=== PATIENT | female | born 1960 | race Caucasian/White ===

== ENCOUNTER → 2016-12-06 | Outpatient (CLI) | payer BC | LOC: MW.NM 06:10 | PROVIDERS: ATTEND Family Medicine | DX: R07.9 Chest pain, unspecified (principal); Z53.9 Procedure and treatment not carried out, unspecified reason ==

== ENCOUNTER 2017-02-03 20:18 | Emergency (ER) | payer BC ==
--- NOTE | 2017-02-03 20:49 | EDM.PDOC ---
ED HPI GENERAL MEDICAL PROBLEM - General Chief Complaint: General Stated Complaint: PT HAS HEADACHE Time Seen by Provider: 02/03/17 20:40 Source of Information: Reports: Patient History Limitations: Reports: No Limitations - History of Present Illness INITIAL COMMENTS - FREE TEXT/NARRATIVE: History of present illness: [56-year-old female presenting with complaints of dizziness, intermittent nausea , left-sided chest pain, as well as pain behind her eyes. ] Review of systems: As per history of present illness and below otherwise all systems reviewed and negative. Past medical history: As per history of present illness and as reviewed below otherwise noncontributory. Surgical history: As per history of present illness and as reviewed below otherwise noncontributory. Social history: No reported history of drug or alcohol abuse. Family history: As per history of present illness and as reviewed below otherwise noncontributory. Physical exam: HEENT: Atraumatic, normocephalic, pupils reactive, negative for conjunctival pallor or scleral icterus, mucous membranes moist, throat clear, neck supple, nontender, trachea midline. Lungs: Clear to auscultation, breath sounds equal bilaterally, chest nontender. Heart: S1S2, regular, negative for clicks, rubs, or JVD. Abdomen: Soft, nondistended, nontender. Negative for masses or hepatosplenomegaly. Negative for costovertebral tenderness. Pelvis: Stable nontender. Genitourinary: Deferred. Rectal: Deferred. Extremities: Atraumatic, negative for cords or calf pain. Neurovascular unremarkable. Neuro: Awake, alert, oriented. Cranial nerves II through XII unremarkable. Cerebellum unremarkable. Motor and sensory unremarkable throughout. Exam nonfocal. Global assessment was benign save that subjective complaint as listed in the history of present illness Diagnostics: [Cardiac workup] Therapeutics: [] Impression: [Atypical chest pain] Plan: [Followup with PCP] Definitive disposition and diagnosis as appropriate pending reevaluation and review of above. - Related Data Allergies Allergy/AdvReac Type Severity Reaction Status Date / Time aloe vera Allergy Blisters Verified 02/03/17 20:23 witch araceli Allergy Hives Verified 02/03/17 20:23 dust Allergy Cough Uncoded 02/03/17 20:23 Home Meds: Home Meds Venlafaxine [Effexor XR 24 Hr] 75 mg PO DAILY 01/24/16 [History] sitaGLIPtin Phos/Metformin HCl [Janumet 50-500 MG] 1,000 mg PO DAILY 02/03/17 [ History] Past Medical History HEENT History: Reports: Hard of Hearing Psychiatric History: Reports: Anxiety, Depression - Infectious Disease History Infectious Disease History: Reports: Chicken Pox - Past Surgical History HEENT Surgical History: Reports: Tonsillectomy GI Surgical History: Reports: Cholecystectomy, Hernia Repair/Other Other Female Surgeries/Procedures: Breat biopsy, left 1994 Oncologic Surgical History: Reports: Biopsy of Breast Social & Family History - Family History Family Medical History: Noncontributory Cardiac: Reports: Afib, Bypass, Heart Failure, Hypertension, [place], Stent, Other ( See Below) Other Cardiac Family History: weak heart valve Neurological: Reports: CVA, Other (See Below) Other Neurological Family History: hemorragic stroke Endocrine/Metabolic: Reports: Diabetes, Type I, Diabetes, type II - Tobacco Use Smoking Status *Q: Never Smoker Second Hand Smoke Exposure: No - Caffeine Use Caffeine Use: Reports: Coffee Caffeine Use Comment: 1 cup/day - Recreational Drug Use Recreational Drug Use: No ED ROS GENERAL - Review of Systems Review Of Systems: See Below (The history of present illness) ED EXAM, GENERAL - Physical Exam Exam: See Below (History of present illness) Course - Vital Signs Last Recorded V/S: Last Vital Signs Temp 36.2 C 02/03/17 20:20 Pulse 92 02/03/17 21:00 Resp 19 02/03/17 21:00 BP 166/101 H 02/03/17 21:00 Pulse Ox 96 02/03/17 21:00 - Orders/Labs/Meds Orders: Active Orders 24 hr Category Date Time Status EKG Documentation Completion [RC] STAT Care 02/03/17 21:05 Active Chest 2V [CR] Stat Exams 02/03/17 21:05 Taken Sodium Chloride 0.9% [Saline Flush] Med 02/03/17 21:05 Active 10 ml FLUSH ASDIRECTED PRN Sodium Chloride 0.9% [Saline Flush] Med 02/03/17 21:05 Active 2.5 ml FLUSH ASDIRECTED PRN Saline Lock Insert [OM.PC] Stat Oth 02/03/17 21:05 Ordered Medication Orders Sodium Chloride (Saline Flush) 10 ml FLUSH ASDIRECTED PRN PRN Reason: Keep Vein Open Sodium Chloride (Saline Flush) 2.5 ml FLUSH ASDIRECTED PRN PRN Reason: Keep Vein Open Labs: Laboratory Tests 02/03/17 02/03/17 02/03/17 Range/Units 21:15 21:15 21:15 WBC 13.99 H (4.0-11.0) K/uL RBC 4.58 (4.30-5.90) M/uL Hgb 13.6 (12.0-16.0) g/dL Hct 40.8 (36.0-46.0) % MCV 89.1 (80.0-98.0) fL MCH 29.7 (27.0-32.0) pg MCHC 33.3 (31.0-37.0) g/dL RDW Std Deviation 42.7 (28.0-62.0) fl RDW Coeff of Michelle 13 (11.0-15.0) % Plt Count 301 (150-400) K/uL MPV 10.90 (7.40-12.00) fL Neut % (Auto) 54.8 (48.0-80.0) % Lymph % (Auto) 32.4 (16.0-40.0) % Lake % (Auto) 9.0 (0.0-15.0) % Eos % (Auto) 3.4 (0.0-7.0) % Baso % (Auto) 0.4 (0.0-1.5) % Neut # (Auto) 7.7 H (1.4-5.7) K/uL Lymph # (Auto) 4.5 H (0.6-2.4) K/uL Lake # (Auto) 1.3 H (0.0-0.8) K/uL Eos # (Auto) 0.5 (0.0-0.7) K/uL Baso # (Auto) 0.1 (0.0-0.1) K/uL Nucleated RBC % 0.0 /100WBC Nucleated RBCs # 0 K/uL INR 1.00 (0.86-1.11) D-Dimer, Quantitative 0.21 (0.0-0.52) mg/LFEU Sodium 139 (136-146) mmol/L Potassium 3.7 (3.5-5.1) mmol/L Chloride 104 (98-110) mmol/L Carbon Dioxide 25 (21-31) mmol/L BUN 13 (6.0-23.0) mg/dL Creatinine 0.7 (0.6-1.5) mg/dL Est Cr Clr Drug Dosing 76.00 mL/min Estimated GFR (MDRD) > 60.0 ml/min Glucose 131 H (60-110) mg/dL Calcium 9.4 (8.8-10.8) mg/dL Total Bilirubin 0.6 (0.1-1.5) mg/dL AST 19 (5-40) IU/L ALT 24 (8-54) IU/L Alkaline Phosphatase 88 (40-150) Troponin I (0.0-0.29) NG/ML Total Protein 7.2 (6.0-8.0) g/dL Albumin 3.9 (3.5-5.0) g/dL Globulin 3.3 (2.0-3.5) g/dL Albumin/Globulin Ratio 1.2 L (1.3-2.8) Amylase 37 (10-90) U/L Lipase 17 (7-80) U/L 02/03/17 Range/Units 21:15 WBC (4.0-11.0) K/uL RBC (4.30-5.90) M/uL Hgb (12.0-16.0) g/dL Hct (36.0-46.0) % MCV (80.0-98.0) fL MCH (27.0-32.0) pg MCHC (31.0-37.0) g/dL RDW Std Deviation (28.0-62.0) fl RDW Coeff of Michelle (11.0-15.0) % Plt Count (150-400) K/uL MPV (7.40-12.00) fL Neut % (Auto) (48.0-80.0) % Lymph % (Auto) (16.0-40.0) % Lake % (Auto) (0.0-15.0) % Eos % (Auto) (0.0-7.0) % Baso % (Auto) (0.0-1.5) % Neut # (Auto) (1.4-5.7) K/uL Lymph # (Auto) (0.6-2.4) K/uL Lake # (Auto) (0.0-0.8) K/uL Eos # (Auto) (0.0-0.7) K/uL Baso # (Auto) (0.0-0.1) K/uL Nucleated RBC % /100WBC Nucleated RBCs # K/uL INR (0.86-1.11) D-Dimer, Quantitative (0.0-0.52) mg/LFEU Sodium (136-146) mmol/L Potassium (3.5-5.1) mmol/L Chloride (98-110) mmol/L Carbon Dioxide (21-31) mmol/L BUN (6.0-23.0) mg/dL Creatinine (0.6-1.5) mg/dL Est Cr Clr Drug Dosing mL/min Estimated GFR (MDRD) ml/min Glucose (60-110) mg/dL Calcium (8.8-10.8) mg/dL Total Bilirubin (0.1-1.5) mg/dL AST (5-40) IU/L ALT (8-54) IU/L Alkaline Phosphatase (40-150) Troponin I < 0.10 (0.0-0.29) NG/ML Total Protein (6.0-8.0) g/dL Albumin (3.5-5.0) g/dL Globulin (2.0-3.5) g/dL Albumin/Globulin Ratio (1.3-2.8) Amylase (10-90) U/L Lipase (7-80) U/L Meds: Medications Generic Name Dose Route Start Last Admin Trade Name Yinka PRN Reason Stop Dose Admin Sodium Chloride 10 ml 02/03/17 21:05 Saline Flush FLUSH ASDIRECTED PRN Keep Vein Open Sodium Chloride 2.5 ml 02/03/17 21:05 Saline Flush FLUSH ASDIRECTED PRN Keep Vein Open Discontinued Medications Generic Name Dose Route Start Last Admin Trade Name Chrisq PRN Reason Stop Dose Admin Aspirin 324 mg 02/03/17 21:05 02/03/17 21:27 Aspirin PO 02/03/17 21:06 324 mg ONETIME ONE Administration Al Hydroxide/Mg Hydroxide 15 0 ml 02/03/17 21:05 02/03/17 21:31 ml/ Metoclopramide HCl 5 mg/ PO 02/03/17 21:06 25 each Lidocaine HCl 5 ml ONETIME ONE Administration Famotidine 20 mg 02/03/17 21:05 02/03/17 21:28 Pepcid IVPUSH 02/03/17 21:06 20 mg ONETIME ONE Administration Ketorolac Tromethamine 30 mg 02/03/17 21:05 02/03/17 21:31 Toradol IVPUSH 02/03/17 21:06 30 mg ONETIME ONE Administration Nitroglycerin 1 gm 02/03/17 21:05 02/03/17 21:26 Nitro-Bid 2% TOP 02/03/17 21:06 1 gm ONETIME ONE Administration Departure - Departure Time of Disposition: 22:05 Disposition: Home, Self-Care 01 Condition: good Clinical Impression: Atypical chest pain - Discharge Information Forms: ED Department Discharge Additional Instructions: The following information is given to patients seen in the emergency department who are being discharged to home. This information is to outline your options for follow-up care. We provide all patients seen in our emergency department with a follow-up referral. The need for follow-up, as well as the timing and circumstances, are variable depending upon the specifics of your emergency department visit. If you don't have a primary care physician on staff, we will provide you with a referral. We always advise you to contact your personal physician following an emergency department visit to inform them of the circumstance of the visit and for follow-up with them and/or the need for any referrals to a consulting specialist. The emergency department will also refer you to a specialist when appropriate. This referral assures that you have the opportunity for follow-up care with a specialist. All of these measure are taken in an effort to provide you with optimal care, which includes your follow-up. Under all circumstances we always encourage you to contact your private physician who remains a resource for coordinating your care. When calling for follow-up care, please make the office aware that this follow-up is from your recent emergency room visit. If for any reason you are refused follow-up, please contact the [facility] Emergency Department at and asked to speak to the emergency department charge nurse. Followup with primary care provider one to 2 days Return to ED as needed as discussed - My Orders Last 24 Hours: My Active Orders 02/03/17 21:05 EKG Documentation Completion [RC] STAT Chest 2V [CR] Stat Sodium Chloride 0.9% [Saline Flush] 10 ml FLUSH ASDIRECTED PRN Sodium Chloride 0.9% [Saline Flush] 2.5 ml FLUSH ASDIRECTED PRN Saline Lock Insert [OM.PC] Stat - Assessment/Plan Last 24 Hours: My Active Orders 02/03/17 21:05 EKG Documentation Completion [RC] STAT Chest 2V [CR] Stat Sodium Chloride 0.9% [Saline Flush] 10 ml FLUSH ASDIRECTED PRN Sodium Chloride 0.9% [Saline Flush] 2.5 ml FLUSH ASDIRECTED PRN Saline Lock Insert [OM.PC] Stat
[2017-02-03] MEDS ORDERED: Aspirin 81 MG Tab.Chew PO ONE (21:05)
[2017-02-03] MEDS ORDERED: Sodium Chloride 0.9% 10 ML Syringe FLUSH PRN (21:05)
[2017-02-03] MEDS ORDERED: Alum Hydrox/Mag Hydrox/Simeth 15 ML, Metoclopramide 5 MG, Lidocaine 2% 5 ML PO ONE ×3 (21:05)
[2017-02-03] MEDS ORDERED: Ketorolac 30 MG/ML SDV IVPUSH ONE (21:05)
[2017-02-03] MEDS ORDERED: Sodium Chloride 0.9% 2.5 ML Syringe FLUSH PRN (21:05)
[2017-02-03] MEDS ORDERED: Nitroglycerin 2% Oint 1 GM UD Packet TOP ONE (21:05)
[2017-02-03] MEDS ORDERED: Famotidine 20 MG/2 ML SDV IVPUSH ONE (21:05)
[2017-02-03 21:44] LABS: CHLORIDE,CL 104 mmol/L (98-110); SODIUM,NA 139 mmol/L (136-146)
[2017-02-03 22:22] VITALS: BP 172/94
--- NOTE | 2017-02-05 15:04 | CR ---
EXAM DATE: 02/03/17 PATIENT'S AGE: 56 Patient: GUILLERMO LUIS Facility: [place], [place] Site . Site : 1960 Study: XRay Chest [id number]/20/2017 9:28:06 PM Ordering Physician: Doctor Baca Final Report: HISTORY: Pain between the clavicles. Comparison: 11/15/2011. Findings: The lungs are clear. Costophrenic angles sharp. Heart size and pulmonary vascularity within normal limits. Mild degenerative changes in the spine. Impression: No acute pulmonary process. Dictated by Oly Wen MD @ Feb 03 2017 9:29PM (Electronic Signature) Report Signed by Proxy. SANTIAGO
== END 2017-02-03 22:13 | disposition home or self-care (01) ==
LOC: MW.ED 20:18
DX: R07.89 Other chest pain (principal); F41.9 Anxiety disorder, unspecified; F32.9 Major depressive disorder, single episode, unspecified; Z98.890 Other specified postprocedural states; Z90.49 Acquired absence of other specified parts of digestive tract; Z79.899 Other long term (current) drug therapy; Z79.84 Long term (current) use of oral hypoglycemic drugs; Z88.8 Allergy status to other drugs, medicaments and biological substances; Z91.048 Other nonmedicinal substance allergy status
CPT/HCPCS: 36415; 71020; 80053; 82150; 83690; 84484; 85025; 85379; 85610; 93005; 96374; 96375; 99285; A9270; J1885; 99283

== ENCOUNTER 2017-02-22 00:55 | Emergency (ER) | payer BC ==
[2017-02-22] MEDS ORDERED: Ketorolac 30 MG/ML SDV IM ONE (01:08)
--- NOTE | 2017-02-22 01:24 | EDM.PDOC ---
ED HPI GENERAL MEDICAL PROBLEM - General Chief Complaint: Back Pain or Injury Stated Complaint: BACK PAIN Time Seen by Provider: 02/22/17 01:23 - History of Present Illness INITIAL COMMENTS - FREE TEXT/NARRATIVE: HISTORY AND PHYSICAL: History of present illness: Patient 56-year-old female with history chronic back pain presents with a concern of low back pain she states this is been over last several weeks she did see her chiropractor who wanted x-rays she is here tonight for x-rays that she was unable to secure due to her personal responsibilities. She's had no numbness no weakness no incontinence or retention of bowel or bladder she denies any trauma Review of systems: As per history of present illness and below otherwise all systems reviewed and negative. Past medical history: As per history of present illness and as reviewed below otherwise noncontributory. Surgical history: As per history of present illness and as reviewed below otherwise noncontributory. Social history: No reported history of drug or alcohol abuse. Family history: As per history of present illness and as reviewed below otherwise noncontributory. Physical exam: HEENT: Atraumatic, normocephalic, pupils reactive, negative for conjunctival pallor or scleral icterus, mucous membranes moist, throat clear, neck supple, nontender, trachea midline. Lungs: Clear to auscultation, breath sounds equal bilaterally, chest nontender. Heart: S1S2, regular, negative for clicks, rubs, or JVD. Abdomen: Soft, nondistended, nontender. Negative for masses or hepatosplenomegaly. Negative for costovertebral tenderness. Pelvis: Stable nontender. Genitourinary: Deferred. Rectal: Deferred. Extremities: Atraumatic, negative for cords or calf pain. Neurovascular unremarkable. Neuro: Awake, alert, oriented. Cranial nerves II through XII unremarkable. Cerebellum unremarkable. Motor and sensory unremarkable throughout. Exam nonfocal. Back: Patient is some mild tenderness in the paravertebral region of the lower thoracic and lumbar spine no vertebral body or point tenderness patient able stand on her toes back on her heels and deep tendon reflexes are normal Diagnostics: X-ray thoracic spine x-ray lumbosacral spine Therapeutics: Toradol 30 mg IM Impression: #1 chronic intermittent thoracolumbar back pain Definitive disposition and diagnosis as appropriate pending reevaluation and review of above. back Pain Score (Numeric/FACES): 10 - Related Data Allergies Allergy/AdvReac Type Severity Reaction Status Date / Time aloe vera Allergy Blisters Verified 02/22/17 01:00 witch araceli Allergy Hives Verified 02/22/17 01:00 dust Allergy Cough Uncoded 02/22/17 01:00 Home Meds: Home Meds Venlafaxine [Effexor XR 24 Hr] 75 mg PO DAILY 01/24/16 [History] sitaGLIPtin Phos/Metformin HCl [Janumet 50-500 MG] 1,000 mg PO DAILY 02/03/17 [ History] Aspirin 81 mg PO BRK 02/22/17 [History] Past Medical History HEENT History: Reports: Hard of Hearing Psychiatric History: Reports: Anxiety, Depression - Infectious Disease History Infectious Disease History: Reports: Chicken Pox - Past Surgical History HEENT Surgical History: Reports: Tonsillectomy GI Surgical History: Reports: Cholecystectomy, Hernia Repair/Other Other Female Surgeries/Procedures: Breat biopsy, left 1994 Oncologic Surgical History: Reports: Biopsy of Breast Social & Family History - Family History Family Medical History: Noncontributory Cardiac: Reports: Afib, Bypass, Heart Failure, Hypertension, [place], Stent, Other ( See Below) Other Cardiac Family History: weak heart valve Neurological: Reports: CVA, Other (See Below) Other Neurological Family History: hemorragic stroke Endocrine/Metabolic: Reports: Diabetes, Type I, Diabetes, type II - Tobacco Use Smoking Status *Q: Never Smoker Second Hand Smoke Exposure: No - Caffeine Use Caffeine Use: Reports: Coffee Caffeine Use Comment: 1 cup/day - Recreational Drug Use Recreational Drug Use: No ED ROS GENERAL - Review of Systems Review Of Systems: ROS reveals no pertinent complaints other than HPI. ED EXAM, GENERAL - Physical Exam Exam: See Below (See dictation) Course - Vital Signs Last Recorded V/S: Last Vital Signs Temp 36.1 C 02/22/17 01:02 Pulse 90 02/22/17 01:02 Resp 20 02/22/17 01:02 BP 188/107 H 02/22/17 01:02 Pulse Ox 96 02/22/17 01:02 - Orders/Labs/Meds Orders: Active Orders 24 hr Category Date Time Status Lumbar Spine 2 or 3V [CR] Stat Exams 02/22/17 01:08 Ordered Thoracic Spine 2V [CR] Stat Exams 02/22/17 01:08 Ordered Meds: Medications Discontinued Medications Generic Name Dose Route Start Last Admin Trade Name Yinka PRN Reason Stop Dose Admin Ketorolac Tromethamine 30 mg 02/22/17 01:08 02/22/17 01:17 Toradol IM 02/22/17 01:09 30 mg ONETIME ONE Administration Departure - Departure Time of Disposition: 01:22 Disposition: Home, Self-Care 01 Condition: good Clinical Impression: Chronic back pain - Discharge Information Forms: ED Department Discharge Additional Instructions: The following information is given to patients seen in the emergency department who are being discharged to home. This information is to outline your options for follow-up care. We provide all patients seen in our emergency department with a follow-up referral. The need for follow-up, as well as the timing and circumstances, are variable depending upon the specifics of your emergency department visit. If you don't have a primary care physician on staff, we will provide you with a referral. We always advise you to contact your personal physician following an emergency department visit to inform them of the circumstance of the visit and for follow-up with them and/or the need for any referrals to a consulting specialist. The emergency department will also refer you to a specialist when appropriate. This referral assures that you have the opportunity for followup care with a specialist. All of these measure are taken in an effort to provide you with optimal care, which includes your followup. Under all circumstances we always encourage you to contact your private physician who remains a resource for coordinating your care. When calling for followup care, please make the office aware that this follow-up is from your recent emergency room visit. If for any reason you are refused follow-up, please contact the [facility] emergency department at and asked to speak to the emergency department charge nurse. Follow-up primary medical doctor 1-2 days continue current medications return as needed as discussed - My Orders Last 24 Hours: My Active Orders 02/22/17 01:08 Lumbar Spine 2 or 3V [CR] Stat Thoracic Spine 2V [CR] Stat - Assessment/Plan Last 24 Hours: My Active Orders 02/22/17 01:08 Lumbar Spine 2 or 3V [CR] Stat Thoracic Spine 2V [CR] Stat
[2017-02-22 02:25] VITALS: BP 140/79
--- NOTE | 2017-02-22 10:54 | CR ---
EXAM DATE: 02/22/17 PATIENT'S AGE: 56 Patient: GUILLERMO LUIS Facility: [place], [place] Site . Site : 1960 Study: XRay Spine Lumbar [id number]/8/[id number] 1:40:42 AM Ordering Physician: Doctor Baca Final Report: INDICATION : Chronic back pain, worsened tonight. History of fall 1 year ago. TECHNIQUE : Three views of lumbar spine. FINDINGS : There are 5 lumbar vertebral bodies. Multilevel disk space narrowing in the lumbar spine and visualized lower thoracic spine with marginal osteophytes. Moderate lower lumbar spine facet degenerative changes, which likely contributes to foraminal narrowing at the L4-L5 and L5-S1 levels. No pars defect. No suspicious osseous lesion. Sacroiliac joints unremarkable. Cholecystectomy surgical clips in the right upper abdomen. IMPRESSION : Multilevel degenerative disc disease in the lower thoracic spine and throughout the lumbar spine. No compression fracture. Lower lumbar spine facet degenerative changes likely contributes to foraminal narrowing at the L4-L5 and L5-S1 levels. Dictated by Pineda Young MD @ 02/22/2017 2:02:09 AM Dictated by: Pineda Young MD @ 02/22/2017 02:02:19 (Electronic Signature) Report Signed by Proxy. SANTIAGO
--- NOTE | 2017-02-22 10:55 | CR ---
EXAM DATE: 02/22/17 PATIENT'S AGE: 56 Patient: GUILLERMO LUIS Facility: [place], [place] Site . Site : 1960 Study: XRay Spine Thoracic [id number]/8/[id number] 1:41:21 AM Ordering Physician: Doctor Baca Final Report: INDICATION : Chronic back pain. History of fall 1 year ago. Worsening symptoms earlier tonight. TECHNIQUE : Two views of thoracic spine. FINDINGS : Multilevel disc space narrowing throughout the thoracic spine with marginal osteophytes. Alignment normal. No compression fracture or suspicious osseous lesion. Paraspinal soft tissues within normal limits. Posterior ribs intact. IMPRESSION : Moderate degree of multilevel thoracic spine degenerative disk disease. No acute abnormality. Dictated by Pineda Young MD @ 02/22/2017 2:03:51 AM Dictated by: Pineda Young MD @ 02/22/2017 02:03:56 (Electronic Signature) Report Signed by Proxy. SANTIAGO
== END 2017-02-22 02:23 | disposition home or self-care (01) ==
LOC: MW.ED 00:55
DX: G89.29 Other chronic pain (principal); M54.5 Low back pain; F41.9 Anxiety disorder, unspecified; F32.9 Major depressive disorder, single episode, unspecified; Z79.899 Other long term (current) drug therapy; Z91.048 Other nonmedicinal substance allergy status
CPT/HCPCS: 72070; 72100; 96372; 99283; J1885

== ENCOUNTER 2018-04-29 22:01 | Emergency (ER) | payer BC ==
[2018-04-29 22:26] VITALS: BP 153/71
--- NOTE | 2018-04-29 22:29 | EDM.PDOC ---
ED HPI GENERAL MEDICAL PROBLEM - General Chief Complaint: Lower Extremity Injury/Pain Stated Complaint: LOG FELL ON RIGHT FOOT Time Seen by Provider: 04/29/18 22:15 Source of Information: Reports: Patient History Limitations: Reports: No Limitations - History of Present Illness INITIAL COMMENTS - FREE TEXT/NARRATIVE: HISTORY AND PHYSICAL: History of present illness: 57-year-old female presenting to emergency department with right foot pain after trauma. Patient states that at work today she dropped an approximately 30 pound log onto her right foot she was wearing a maccosin at the time noon. States that she was able to walk afterwards but noted some pain and swelling to the top of her foot. As the night went on pain increased as well as swelling. She denies any loss of sensation, strength, or range of motion. On exam there is swelling to the top of the foot and patient is tender to palpation. Neurovascular intact. Review of systems: As per history of present illness and below otherwise all systems reviewed and negative. Past medical history: As per history of present illness and as reviewed below otherwise noncontributory. Surgical history: As per history of present illness and as reviewed below otherwise noncontributory. Social history: No reported history of drug or alcohol abuse. Family history: As per history of present illness and as reviewed below otherwise noncontributory. Physical exam: HEENT: Atraumatic, normocephalic, pupils reactive, negative for conjunctival pallor or scleral icterus, mucous membranes moist, throat clear, neck supple, nontender, trachea midline. Lungs: Clear to auscultation, breath sounds equal bilaterally, chest nontender. Heart: S1S2, regular, negative for clicks, rubs, or JVD. Abdomen: Soft, nondistended, nontender. Negative for masses or hepatosplenomegaly. Negative for costovertebral tenderness. Pelvis: Stable nontender. Genitourinary: Deferred. Rectal: Deferred. Extremities: Swelling to top of foot and tender to palp, negative for cords or calf pain. Neurovascular unremarkable. Neuro: Awake, alert, oriented. Cranial nerves II through XII unremarkable. Cerebellum unremarkable. Motor and sensory unremarkable throughout. Exam nonfocal. Diagnostics: right foot x-ray Therapeutics: toradol 60 Impression: contusion right foot Plan: Right foot x-ray was negative for acute osseous abnormalities. This was communicated to the patient. She was told to use rice, rest, ice, compression, elevation, and ibuprofen. She should follow with primary care provider and return the emergency department if she has any new or worsening symptoms. Definitive disposition and diagnosis as appropriate pending reevaluation and review of above. Treatments [employer] G[employer]: Reports: Cold Therapy right foot Pain Score (Numeric/FACES): 6 - Related Data Allergies Allergy/AdvReac Type Severity Reaction Status Date / Time aloe vera Allergy Blisters Verified 02/22/17 01:00 witch araceli Allergy Hives Verified 02/22/17 01:00 dust Allergy Cough Uncoded 02/22/17 01:00 Home Meds: Home Meds Venlafaxine [Effexor XR 24 Hr] 75 mg PO DAILY 01/24/16 [History] sitaGLIPtin Phos/Metformin HCl [Janumet 50-500 MG] 2 tab PO BEDTIME 02/03/17 [ History] Aspirin 81 mg PO BRK 02/22/17 [History] Cetirizine HCl [Zyrtec] 10 mg PO ASDIRECTED 12/18/17 [History] Latanoprost [Xalatan 0.005% Ophth Soln] 1 drop EYEBOTH BEDTIME 12/18/17 [History ] Amoxicillin/Clavulanate K [Augmentin 875-125 MG] 1 tab PO BID 10 Days #20 tablet 04/22/18 [Rx] Clopidogrel Bisulfate [Clopidogrel] 75 mg DAILY 04/22/18 [History] Codeine/Promethazine [Phenergan with Codeine] 5 ml PO Q4HR PRN #1 bottle [Rx] Lisinopril 5 mg DAILY 04/22/18 [History] methylPREDNISolone [Medrol] 4 mg PO DAILY #1 tab.ds.pk 04/22/18 [Rx] Past Medical History HEENT History: Reports: Hard of Hearing Cardiovascular History: Reports: Angina, CAD, Stents Other Cardiovascular History: stents x 16 Jan 2018 Respiratory History: Reports: Sleep Apnea Other Respiratory History: wears CPAP Gastrointestinal History: Reports: None Genitourinary History: Reports: None Psychiatric History: Reports: Anxiety, Depression - Infectious Disease History Infectious Disease History: Reports: Chicken Pox - Past Surgical History HEENT Surgical History: Reports: Tonsillectomy GI Surgical History: Reports: Cholecystectomy, Hernia Repair/Other Other Female Surgeries/Procedures: Breat biopsy, left 1994 Oncologic Surgical History: Reports: Biopsy of Breast Social & Family History - Family History Family Medical History: Noncontributory Cardiac: Reports: Afib, Bypass, Heart Failure, Hypertension, [place], Stent, Other ( See Below) Other Cardiac Family History: weak heart valve Neurological: Reports: CVA, Other (See Below) Other Neurological Family History: hemorragic stroke Endocrine/Metabolic: Reports: Diabetes, Type I, Diabetes, type II - Caffeine Use Caffeine Use: Reports: Coffee Caffeine Use Comment: 1 cup/day Review of Systems - Review of Systems Review Of Systems: ROS reveals no pertinent complaints other than HPI. ED EXAM, GENERAL - Physical Exam Exam: See Below Course - Vital Signs Last Recorded V/S: Last Vital Signs Temp 98.2 F 04/29/18 22:01 Pulse 108 H 04/29/18 22:01 Resp 18 04/29/18 22:01 BP 153/71 H 04/29/18 22:01 Pulse Ox 96 04/29/18 22:01 - Orders/Labs/Meds Orders: Active Orders 24 hr Category Date Time Status Foot Comp Min 3V Rt [CR] Stat Exams 04/29/18 22:31 Taken Meds: Medications Discontinued Medications Generic Name Dose Route Start Last Admin Trade Name Freq PRN Reason Stop Dose Admin Ketorolac Tromethamine 60 mg 04/29/18 22:36 04/29/18 23:00 Toradol IM 04/29/18 22:37 60 mg ONETIME ONE Administration Departure - Departure Time of Disposition: 00:10 Disposition: Home, Self-Care 01 Condition: Good Clinical Impression: Contusion of foot, right Qualifiers: Encounter type: initial encounter Qualified Code(s): S90.31XA - Contusion of right foot, initial encounter - Discharge Information Referrals: Ky Camacho MD [Primary Care Provider] - Forms: ED Department Discharge Additional Instructions: My general discharge The following information is given to patients seen in the emergency department who are being discharged to home. This information is to outline your options for follow-up care. We provide all patients seen in our emergency department with a follow-up referral. The need for follow-up, as well as the timing and circumstances, are variable depending upon the specifics of your emergency department visit. If you don't have a primary care physician on staff, we will provide you with a referral. We always advise you to contact your personal physician following an emergency department visit to inform them of the circumstance of the visit and for follow-up with them and/or the need for any referrals to a consulting specialist. The emergency department will also refer you to a specialist when appropriate. This referral assures that you have the opportunity for follow-up care with a specialist. All of these measure are taken in an effort to provide you with optimal care, which includes your follow-up. Under all circumstances we always encourage you to contact your private physician who remains a resource for coordinating your care. When calling for follow-up care, please make the office aware that this follow-up is from your recent emergency room visit. If for any reason you are refused follow-up, please contact the [facility] Emergency Department at and asked to speak to the emergency department charge nurse. [address] [address] Follow-up with primary care provider Use "RICE" rest, ice, compression, and elevation as we discussed. Use Tylenol and Motrin for pain and inflammation. Return to emergency department if any new or worsening symptoms - My Orders Last 24 Hours: My Active Orders 04/29/18 22:31 Foot Comp Min 3V Rt [CR] Stat - Assessment/Plan Last 24 Hours: My Active Orders 04/29/18 22:31 Foot Comp Min 3V Rt [CR] Stat
[2018-04-29] MEDS ORDERED: Ketorolac 60 MG/2 ML SDV IM ONE (22:36)
--- NOTE | 2018-04-30 14:25 | CR ---
EXAM DATE: 04/29/18 PATIENT'S AGE: 57 Patient: GUILLERMO LUIS Facility: [place], [place] Site . Site : [id number] Study: XRay Extremity Right Foot [id number]/[id number] 10:51:35 PM Ordering Physician: Jevon Patel Final Report: INDICATION: Foot injury. COMPARISON: None. FINDINGS/IMPRESSION: Right foot, 3 views. Mild foot soft tissue swelling, greatest over the dorsum of the foot. Acute fracture identified. No dislocation. Mild hallux valgus. 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 Plantar calcaneal spur and spurring at the Achilles tendon insertion on the posterior calcaneus. Dictated by Roberto Ny MD @ 04/29/2018 10:55:28 PM Dictated by: Roberto Ny MD @ 04/29/2018 22:56:57 ----- ADDENDUM ----- Addendum: The report should be corrected to state: "No acute fracture identified." Dictated by Roebrto Ny MD @ Apr 30 2018 12:00AM (Electronic Signature) Report Signed by Proxy. SANTIAGO
== END 2018-04-30 00:18 | disposition home or self-care (01) ==
LOC: MW.ED 22:01
DX: S90.31XA Contusion of right foot, initial encounter (principal); F41.9 Anxiety disorder, unspecified; F32.9 Major depressive disorder, single episode, unspecified; Z79.899 Other long term (current) drug therapy; Z79.01 Long term (current) use of anticoagulants; Z88.8 Allergy status to other drugs, medicaments and biological substances; W20.8XXA Other cause of strike by thrown, projected or falling object, initial encounter
CPT/HCPCS: 73630; 96372; 99283; J1885

== ENCOUNTER 2018-11-11 05:24 | Emergency (ER) | payer BC, OTHER ==
--- NOTE | 2018-11-11 06:14 | CT ---
INDICATION: Fall with memory loss consciousness. TECHNIQUE: Noncontrast head CT scan. COMPARISON: Head CT 03/27/2016. FINDINGS: Axial noncontrast images through the brain parenchyma demonstrates no acute intracranial hemorrhage or mass. No midline shift. No abnormal extra-axial air or fluid collections are seen. Impression : No acute intracranial hemorrhage or mass. Please note that all CT scans at this facility use dose modulation, iterative reconstruction, and/or weight-based dosing when appropriate to reduce radiation dose to as low as reasonably achievable. Dictated by Karrie Michaels MD @ Nov 11 2018 6:09AM Signed by Dr. Karrie Michaels @ Nov 11 2018 6:12AM
--- NOTE | 2018-11-11 07:17 | EDM.PDOC ---
ED HPI GENERAL MEDICAL PROBLEM - General Chief Complaint: Head Injury Stated Complaint: FELL ON ICE AND HIT HEAD Time Seen by Provider: 11/11/18 07:14 - History of Present Illness INITIAL COMMENTS - FREE TEXT/NARRATIVE: HISTORY AND PHYSICAL: History of present illness: Patient's 58-year-old female presents status post fall which she struck her head with possible brief loss consciousness she denies neck pain states this was simply a mechanical fall and slip on the ice was no chest pain dizziness or other complaints she denies numbness weakness visual disturbance or other complaints at this point. Review of systems: As per history of present illness and below otherwise all systems reviewed and negative. Past medical history: As per history of present illness and as reviewed below otherwise noncontributory. Surgical history: As per history of present illness and as reviewed below otherwise noncontributory. Social history: No reported history of drug or alcohol abuse. Family history: As per history of present illness and as reviewed below otherwise noncontributory. Physical exam: HEENT: Atraumatic, normocephalic, pupils reactive, negative for conjunctival pallor or scleral icterus, mucous membranes moist, throat clear, neck supple, nontender, trachea midline. Lungs: Clear to auscultation, breath sounds equal bilaterally, chest nontender. Heart: S1S2, regular, negative for clicks, rubs, or JVD. Abdomen: Soft, nondistended, nontender. Negative for masses or hepatosplenomegaly. Negative for costovertebral tenderness. Pelvis: Stable nontender. Genitourinary: Deferred. Rectal: Deferred. Extremities: Atraumatic, negative for cords or calf pain. Neurovascular unremarkable. Neuro: Awake, alert, oriented. Cranial nerves II through XII unremarkable. Cerebellum unremarkable. Motor and sensory unremarkable throughout. Exam nonfocal. Diagnostics: CT brain Therapeutics: None Impression: #1 cerebral concussion Definitive disposition and diagnosis as appropriate pending reevaluation and review of above. occiput Pain Score (Numeric/FACES): 1 - Related Data Allergies Allergy/AdvReac Type Severity Reaction Status Date / Time aloe vera Allergy Blisters Verified 11/11/18 05:37 witch araceli Allergy Hives Verified 11/11/18 05:37 dust Allergy Cough Uncoded 11/11/18 05:37 Home Meds: Home Meds Venlafaxine [Effexor XR 24 Hr] 75 mg PO DAILY 01/24/16 [History] sitaGLIPtin Phos/Metformin HCl [Janumet 50-500 MG] 2 tab PO BEDTIME 02/03/17 [ History] Aspirin 81 mg PO BRK 02/22/17 [History] Cetirizine HCl [Zyrtec] 10 mg PO ASDIRECTED 12/18/17 [History] Latanoprost [Xalatan 0.005% Ophth Soln] 1 drop EYEBOTH BEDTIME 12/18/17 [History ] Clopidogrel Bisulfate [Clopidogrel] 75 mg PO DAILY 04/22/18 [History] Lisinopril 5 mg PO DAILY 04/22/18 [History] Rosuvastatin Calcium 1 tab PO BEDTIME 11/11/18 [History] Past Medical History HEENT History: Reports: Hard of Hearing Cardiovascular History: Reports: Angina, CAD, Hypertension, Stents Other Cardiovascular History: stents x 16 Jan 2018 Respiratory History: Reports: Sleep Apnea Other Respiratory History: wears CPAP Gastrointestinal History: Reports: None Genitourinary History: Reports: None Psychiatric History: Reports: Anxiety, Depression Endocrine/Metabolic History: Reports: Diabetes, Type II - Infectious Disease History Infectious Disease History: Reports: Chicken Pox - Past Surgical History HEENT Surgical History: Reports: Tonsillectomy Cardiovascular Surgical History: Reports: Coronary Artery Stent Oncologic Surgical History: Reports: Biopsy of Breast Social & Family History - Family History Family Medical History: Noncontributory Cardiac: Reports: Afib, Bypass, Heart Failure, Hypertension, [place], Stent, Other ( See Below) Other Cardiac Family History: weak heart valve Neurological: Reports: CVA, Other (See Below) Other Neurological Family History: hemorragic stroke Endocrine/Metabolic: Reports: Diabetes, Type I, Diabetes, type II - Tobacco Use Smoking Status *Q: Never Smoker - Caffeine Use Caffeine Use: Reports: Coffee Caffeine Use Comment: 1 cup/day - Recreational Drug Use Recreational Drug Use: No ED ROS GENERAL - Review of Systems Review Of Systems: ROS reveals no pertinent complaints other than HPI. ED EXAM, HEAD INJURY - Physical Exam Exam: See Below Course - Vital Signs Last Recorded V/S: Last Vital Signs Temp 36.1 C 11/11/18 05:30 Pulse 90 11/11/18 06:45 Resp 18 11/11/18 06:45 BP 167/96 H 11/11/18 06:45 Pulse Ox 95 11/11/18 06:45 Departure - Departure Time of Disposition: 07:16 Disposition: Home, Self-Care 01 Condition: Good Clinical Impression: Concussion injury of brain - Discharge Information Referrals: Ky Camacho MD [Primary Care Provider] - Additional Instructions: The following information is given to patients seen in the emergency department who are being discharged to home. This information is to outline your options for follow-up care. We provide all patients seen in our emergency department with a follow-up referral. The need for follow-up, as well as the timing and circumstances, are variable depending upon the specifics of your emergency department visit. If you don't have a primary care physician on staff, we will provide you with a referral. We always advise you to contact your personal physician following an emergency department visit to inform them of the circumstance of the visit and for follow-up with them and/or the need for any referrals to a consulting specialist. The emergency department will also refer you to a specialist when appropriate. This referral assures that you have the opportunity for followup care with a specialist. All of these measure are taken in an effort to provide you with optimal care, which includes your followup. Under all circumstances we always encourage you to contact your private physician who remains a resource for coordinating your care. When calling for followup care, please make the office aware that this follow-up is from your recent emergency room visit. If for any reason you are refused follow-up, please contact the [facility] emergency department at and asked to speak to the emergency department charge nurse. Motrin/Tylenol as directed follow-up primary medical doctor return as needed as discussed
[2018-11-11 07:52] VITALS: BP 160/90
== END 2018-11-11 07:52 | disposition home or self-care (01) ==
LOC: MW.ED 05:24
DX: S06.0X9A Concussion with loss of consciousness of unspecified duration, initial encounter (principal); I10 Essential (primary) hypertension; E11.9 Type 2 diabetes mellitus without complications; F41.9 Anxiety disorder, unspecified; F32.9 Major depressive disorder, single episode, unspecified; Z91.09 Other allergy status, other than to drugs and biological substances; Z79.82 Long term (current) use of aspirin; Z79.899 Other long term (current) drug therapy; W00.0XXA Fall on same level due to ice and snow, initial encounter
CPT/HCPCS: 70450; 70450-26; 99284; 99284-25

== ENCOUNTER 2019-02-10 13:46 | Emergency (ER) | payer BC, OTHER ==
[2019-02-10] MEDS ORDERED: methylPREDNISolone Sodium Succinate 125 MG/2 ML SDV IM ONE (13:59)
--- NOTE | 2019-02-10 14:08 | EDM.PDOC ---
ED HPI GENERAL MEDICAL PROBLEM - General Chief Complaint: Respiratory Problem Stated Complaint: SICK Time Seen by Provider: 02/10/19 13:48 Source of Information: Reports: Patient History Limitations: Reports: No Limitations - History of Present Illness INITIAL COMMENTS - FREE TEXT/NARRATIVE: HISTORY AND PHYSICAL: History of present illness: Patient is a 58-year-old female presents to the ED today with concern of laryngitis, sore throat, and cough 2 days. Patient states her main complaint is the laryngitis and sore throat. Patient states she has taken Tylenol over-the -counter without relief of symptoms. Patient denies any other symptoms or concerns at this time. Patient denies fever, chills, chest pain, shortness of breath. Denies headache, neck stiff ness, change in vision, syncope, or near syncope. Denies nausea, vomiting, abdominal pain, diarrhea, constipation, or dysuria. Has not noted any blood in urine or stool. Patient has been eating and drinking appropriately. Review of systems: As per history of present illness and below otherwise all systems reviewed and negative. Past medical history: As per history of present illness and as reviewed below otherwise noncontributory. Surgical history: As per history of present illness and as reviewed below otherwise noncontributory. Social history: See social history for further information Family history: As per history of present illness and as reviewed below otherwise noncontributory. Physical exam: General: Patient is alert, oriented, and in no acute distress. Patient sitting comfortably on exam table. HEENT: Atraumatic, normocephalic, pupils equal and reactive bilaterally, negative for conjunctival pallor or scleral icterus, mucous membranes moist, TMs normal bilaterally, throat clear, neck supple, nontender, trachea midline. No drooling or trismus noted. No meningeal signs. No hot potato voice noted. Lungs: Clear to auscultation, breath sounds equal bilaterally, chest nontender. Dry cough with laryngitis. Heart: S1S2, regular rate and rhythm without overt murmur Abdomen: Soft, nondistended, nontender. Negative for masses or hepatosplenomegaly. Negative for costovertebral tenderness. Pelvis: Stable nontender. Genitourinary: Deferred. Rectal: Deferred. Skin: Intact, warm, dry. No lesions or rashes noted. Extremities: Atraumatic, negative for cords or calf pain. Neurovascular unremarkable. Neuro: Awake, alert, oriented. Cranial nerves II through XII unremarkable. Cerebellum unremarkable. Motor and sensory unremarkable throughout. Exam nonfocal. Notes: Discussed the importance of follow-up with the primary care provider. Voices understanding and is agreeable to plan of care. Denies any further questions or concerns at this time. Diagnostics: Influenza, strep, chest x-ray Therapeutics: Solu-Medrol Prescription: Medrol dose pack Impression: Laryngitis Plan: 1. Take medication as prescribed. You can alternate Ibuprofen and Tylenol as directed for pain and discomfort. 2. Follow-up with her primary care provider as discussed. Return to ED as needed and as discussed. Definitive disposition and diagnosis as appropriate pending reevaluation and review of above. Throat Pain Score (Numeric/FACES): 2 - Related Data Allergies Allergy/AdvReac Type Severity Reaction Status Date / Time adhesive Allergy Itching Verified 02/10/19 14:00 aloe vera Allergy Blisters Verified 11/11/18 05:37 witch araceli Allergy Hives Verified 11/11/18 05:37 dust Allergy Cough Uncoded 11/11/18 05:37 Home Meds: Home Meds Venlafaxine [Effexor XR 24 Hr] 75 mg PO DAILY 01/24/16 [History] sitaGLIPtin Phos/Metformin HCl [Janumet 50-500 MG] 2 tab PO BEDTIME 02/03/17 [ History] Aspirin 81 mg PO BRK 02/22/17 [History] Cetirizine HCl [Zyrtec] 10 mg PO ASDIRECTED 12/18/17 [History] Latanoprost [Xalatan 0.005% [facility] Soln] 1 drop EYEBOTH BEDTIME 12/18/17 [History ] Clopidogrel Bisulfate [Clopidogrel] 75 mg PO DAILY 04/22/18 [History] Lisinopril 5 mg PO DAILY 04/22/18 [History] Rosuvastatin Calcium 1 tab PO BEDTIME 11/11/18 [History] Past Medical History HEENT History: Reports: Hard of Hearing Cardiovascular History: Reports: Angina, CAD, Hypertension, Stents Other Cardiovascular History: stents x 16 Jan 2018 Respiratory History: Reports: Sleep Apnea Other Respiratory History: wears CPAP Gastrointestinal History: Reports: None Genitourinary History: Reports: None Psychiatric History: Reports: Anxiety, Depression Endocrine/Metabolic History: Reports: Diabetes, Type II - Infectious Disease History Infectious Disease History: Reports: Chicken Pox - Past Surgical History HEENT Surgical History: Reports: Tonsillectomy Cardiovascular Surgical History: Reports: Coronary Artery Stent Oncologic Surgical History: Reports: Biopsy of Breast Social & Family History - Family History Family Medical History: Noncontributory Cardiac: Reports: Afib, Bypass, Heart Failure, Hypertension, [place], Stent, Other ( See Below) Other Cardiac Family History: weak heart valve Neurological: Reports: CVA, Other (See Below) Other Neurological Family History: hemorragic stroke Endocrine/Metabolic: Reports: Diabetes, Type I, Diabetes, type II - Tobacco Use Smoking Status *Q: Never Smoker - Caffeine Use Caffeine Use: Reports: Coffee, Soda Caffeine Use Comment: 1 cup/day - Recreational Drug Use Recreational Drug Use: No ED ROS GENERAL - Review of Systems Review Of Systems: ROS reveals no pertinent complaints other than HPI. ED EXAM, GENERAL - Physical Exam Exam: See Below (See dictation) Course - Vital Signs Last Recorded V/S: Last Vital Signs Temp 37.1 C 02/10/19 13:53 Pulse 114 H 02/10/19 13:53 Resp 18 02/10/19 13:53 BP 150/78 H 02/10/19 13:53 Pulse Ox 99 02/10/19 13:53 - Orders/Labs/Meds Orders: Active Orders 24 hr Category Date Time Status CULTURE STREP A CONFIRMATION [RM] Stat Lab 02/10/19 14:00 Results STREP SCRN A RAPID W CULT CONF [RM] Stat Lab 02/10/19 14:00 Results Meds: Medications Discontinued Medications Generic Name Dose Route Start Last Admin Trade Name Yinka PRN Reason Stop Dose Admin Methylprednisolone Sodium Succinate 125 mg 02/10/19 13:59 02/10/19 14:32 Solu-Medrol IM 02/10/19 14:00 125 mg ONETIME ONE Administration Departure - Departure Time of Disposition: 15:19 Disposition: Home, Self-Care 01 Clinical Impression: Laryngitis - Discharge Information Referrals: PCP,Unknown [Primary Care Provider] - Forms: ED Department Discharge Additional Instructions: The following information is given to patients seen in the emergency department who are being discharged to home. This information is to outline your options for follow-up care. We provide all patients seen in our emergency department with a follow-up referral. The need for follow-up, as well as the timing and circumstances, are variable depending upon the specifics of your emergency department visit. If you don't have a primary care physician on staff, we will provide you with a referral. We always advise you to contact your personal physician following an emergency department visit to inform them of the circumstance of the visit and for follow-up with them and/or the need for any referrals to a consulting specialist. The emergency department will also refer you to a specialist when appropriate. This referral assures that you have the opportunity for follow-up care with a specialist. All of these measure are taken in an effort to provide you with optimal care, which includes your follow-up. Under all circumstances we always encourage you to contact your private physician who remains a resource for coordinating your care. When calling for follow-up care, please make the office aware that this follow-up is from your recent emergency room visit. If for any reason you are refused follow-up, please contact the [facility] Emergency Department at and asked to speak to the emergency department charge nurse. [facility] [address] [place] [id number] [place] [address] 1. You can alternate ibuprofen and Tylenol as directed for pain and discomfort. Take medication as prescribed. 2. Follow-up with her primary care provider as discussed. Return to ED as needed and as discussed. - My Orders Last 24 Hours: My Active Orders 02/10/19 14:00 CULTURE STREP A CONFIRMATION [RM] Stat STREP SCRN A RAPID W CULT CONF [] Stat - Assessment/Plan Last 24 Hours: My Active Orders 02/10/19 14:00 CULTURE STREP A CONFIRMATION [RM] Stat STREP SCRN A RAPID W CULT CONF [RM] Stat
--- NOTE | 2019-02-10 15:15 | CR ---
HISTORY: Chest pain and [id number]. FINDINGS: Two views of the chest are provided. The lungs are clear and there is no evidence for pleural effusion or pneumothorax. Cardiac silhouette size is within normal limits. IMPRESSION: Clear lungs. Dictated by Trey Pizano MD @ Feb 10 2019 3:10PM Signed by Dr. Trey Pizano @ Feb 10 2019 3:12PM
[2019-02-10 15:42] VITALS: BP 174/78
== END 2019-02-10 15:42 | disposition home or self-care (01) ==
LOC: MW.ED 13:46
DX: J04.0 Acute laryngitis (principal); I10 Essential (primary) hypertension; E11.9 Type 2 diabetes mellitus without complications; F41.9 Anxiety disorder, unspecified; F32.9 Major depressive disorder, single episode, unspecified; Z88.8 Allergy status to other drugs, medicaments and biological substances; Z95.5 Presence of coronary angioplasty implant and graft; Z91.048 Other nonmedicinal substance allergy status; Z79.899 Other long term (current) drug therapy; Z79.84 Long term (current) use of oral hypoglycemic drugs
CPT/HCPCS: 71046; 87081; 87804; 87880; 96372; 99283; J2930

== ENCOUNTER 2019-02-14 22:13 | Emergency (ER) | payer OTHER ==
[2019-02-14] MEDS ORDERED: Albuterol/Ipratropium 3.0-0.5 MG/3 ML Neb Soln NEB ONE (22:38)
--- NOTE | 2019-02-14 22:40 | EDM.PDOC ---
ED HPI GENERAL MEDICAL PROBLEM - General Chief Complaint: Respiratory Problem Stated Complaint: SORE THROAT,SEVERE COUGH Time Seen by Provider: 02/14/19 22:35 - History of Present Illness INITIAL COMMENTS - FREE TEXT/NARRATIVE: HISTORY AND PHYSICAL: History of present illness: Patient 38-year-old female was seen several days prior and diagnosed with strep pharyngitis chest x-ray was done at that time as was the flu screen were both reportedly negative. She presents now with coughing. She has been taking her antibiotics as prescribed is also been using a Medrol Dosepak Review of systems: As per history of present illness and below otherwise all systems reviewed and negative. Past medical history: As per history of present illness and as reviewed below otherwise noncontributory. Surgical history: As per history of present illness and as reviewed below otherwise noncontributory. Social history: No reported history of drug or alcohol abuse. Family history: As per history of present illness and as reviewed below otherwise noncontributory. Physical exam: HEENT: Atraumatic, normocephalic, pupils reactive, negative for conjunctival pallor or scleral icterus, mucous membranes moist, throat clear, neck supple, nontender, trachea midline. Lungs: Clear to auscultation, breath sounds equal bilaterally, chest nontender. Heart: S1S2, regular, negative for clicks, rubs, or JVD. Abdomen: Soft, nondistended, nontender. Negative for masses or hepatosplenomegaly. Negative for costovertebral tenderness. Pelvis: Stable nontender. Genitourinary: Deferred. Rectal: Deferred. Extremities: Atraumatic, negative for cords or calf pain. Neurovascular unremarkable. Neuro: Awake, alert, oriented. Cranial nerves II through XII unremarkable. Cerebellum unremarkable. Motor and sensory unremarkable throughout. Exam nonfocal. Diagnostics: None Therapeutics: Albuterol ipratropium nebulizer Impression: #1 tracheobronchitis #2 history of strep pharyngitis Definitive disposition and diagnosis as appropriate pending reevaluation and review of above. Arm Pain Score (Numeric/FACES): 3 - Related Data Allergies Allergy/AdvReac Type Severity Reaction Status Date / Time adhesive Allergy Itching Verified 02/14/19 22:24 aloe vera Allergy Blisters Verified 02/14/19 22:24 witch araceli Allergy Hives Verified 02/14/19 22:24 dust Allergy Cough Uncoded 02/14/19 22:24 Home Meds: Home Meds Venlafaxine [Effexor XR 24 Hr] 75 mg PO DAILY 01/24/16 [History] sitaGLIPtin Phos/Metformin HCl [Janumet 50-500 MG] 2 tab PO BEDTIME 02/03/17 [ History] Aspirin 81 mg PO BRK 02/22/17 [History] Cetirizine HCl [Zyrtec] 10 mg PO ASDIRECTED 12/18/17 [History] Latanoprost [Xalatan 0.005% [facility] Soln] 1 drop EYEBOTH BEDTIME 12/18/17 [History ] Clopidogrel Bisulfate [Clopidogrel] 75 mg PO DAILY 04/22/18 [History] Lisinopril 5 mg PO DAILY 04/22/18 [History] Rosuvastatin Calcium 1 tab PO BEDTIME 11/11/18 [History] Amoxicillin/Clavulanate K [Augmentin 500-125 MG] 02/14/19 [History] methylPREDNISolone [Medrol] 02/14/19 [History] Past Medical History HEENT History: Reports: Hard of Hearing Cardiovascular History: Reports: Angina, CAD, Hypertension, Stents Other Cardiovascular History: stents x 16 Jan 2018 Respiratory History: Reports: Sleep Apnea Other Respiratory History: wears CPAP Gastrointestinal History: Reports: None Genitourinary History: Reports: None Psychiatric History: Reports: Anxiety, Depression Endocrine/Metabolic History: Reports: Diabetes, Type II - Infectious Disease History Infectious Disease History: Reports: Chicken Pox - Past Surgical History HEENT Surgical History: Reports: Tonsillectomy Cardiovascular Surgical History: Reports: Coronary Artery Stent Oncologic Surgical History: Reports: Biopsy of Breast Social & Family History - Family History Family Medical History: Noncontributory Cardiac: Reports: Afib, Bypass, Heart Failure, Hypertension, [place], Stent, Other ( See Below) Other Cardiac Family History: weak heart valve Neurological: Reports: CVA, Other (See Below) Other Neurological Family History: hemorragic stroke Endocrine/Metabolic: Reports: Diabetes, Type I, Diabetes, type II - Tobacco Use Smoking Status *Q: Never Smoker - Caffeine Use Caffeine Use: Reports: Coffee, Energy Drinks Caffeine Use Comment: 1 cup/day - Recreational Drug Use Recreational Drug Use: No ED ROS GENERAL - Review of Systems Review Of Systems: ROS reveals no pertinent complaints other than HPI. ED EXAM, GENERAL - Physical Exam Exam: See Below (See dictation) Course - Vital Signs Last Recorded V/S: Last Vital Signs Temp 36.9 C 02/14/19 22:25 Pulse 114 H 02/14/19 22:25 Resp 22 H 02/14/19 22:25 BP 160/88 H 02/14/19 22:25 Pulse Ox 96 02/14/19 22:25 - Orders/Labs/Meds Orders: Active Orders 24 hr Category Date Time Status RT Aerosol Therapy [RC] ASDIRECTED Care 02/14/19 22:38 Ordered Albuterol/Ipratropium [DuoNeb 3.0-0.5 MG/3 ML] Med 02/14/19 22:38 Once 3 ml NEB ONETIME ONE Medication Orders Albuterol/Ipratropium (Duoneb 3.0-0.5 Mg/3 Ml) 3 ml NEB ONETIME ONE Stop: 02/14/19 22:39 Meds: Medications Generic Name Dose Route Start Last Admin Trade Name Yinka PRN Reason Stop Dose Admin Albuterol/Ipratropium 3 ml 02/14/19 22:38 Duoneb 3.0-0.5 Mg/3 Ml NEB 02/14/19 22:39 ONETIME ONE Departure - Departure Time of Disposition: 22:39 Disposition: Home, Self-Care 01 Condition: Good Clinical Impression: Tracheobronchitis, History of strep pharyngitis - Discharge Information Referrals: Ky Camacho MD [Primary Care Provider] - Additional Instructions: The following information is given to patients seen in the emergency department who are being discharged to home. This information is to outline your options for follow-up care. We provide all patients seen in our emergency department with a follow-up referral. The need for follow-up, as well as the timing and circumstances, are variable depending upon the specifics of your emergency department visit. If you don't have a primary care physician on staff, we will provide you with a referral. We always advise you to contact your personal physician following an emergency department visit to inform them of the circumstance of the visit and for follow-up with them and/or the need for any referrals to a consulting specialist. The emergency department will also refer you to a specialist when appropriate. This referral assures that you have the opportunity for followup care with a specialist. All of these measure are taken in an effort to provide you with optimal care, which includes your followup. Under all circumstances we always encourage you to contact your private physician who remains a resource for coordinating your care. When calling for followup care, please make the office aware that this follow-up is from your recent emergency room visit. If for any reason you are refused follow-up, please contact the [facility] emergency department at and asked to speak to the emergency department charge nurse. Albuterol as prescribed Medrol as directed continue antibiotics as prescribed push fluids follow-up primary medical doctor as needed as discussed and return as needed as discussed - My Orders Last 24 Hours: My Active Orders 02/14/19 22:38 RT Aerosol Therapy [RC] ASDIRECTED Albuterol/Ipratropium [DuoNeb 3.0-0.5 MG/3 ML] 3 ml NEB ONETIME ONE - Assessment/Plan Last 24 Hours: My Active Orders 02/14/19 22:38 RT Aerosol Therapy [RC] ASDIRECTED Albuterol/Ipratropium [DuoNeb 3.0-0.5 MG/3 ML] 3 ml NEB ONETIME ONE
[2019-02-14 23:36] VITALS: BP 153/81
== END 2019-02-14 23:10 | disposition home or self-care (01) ==
LOC: MW.ED 22:13
DX: J40 Bronchitis, not specified as acute or chronic (principal); I10 Essential (primary) hypertension; I25.10 Atherosclerotic heart disease of native coronary artery without angina pectoris; E11.9 Type 2 diabetes mellitus without complications; F41.9 Anxiety disorder, unspecified; F32.9 Major depressive disorder, single episode, unspecified; Z91.09 Other allergy status, other than to drugs and biological substances; Z88.8 Allergy status to other drugs, medicaments and biological substances; Z79.899 Other long term (current) drug therapy; Z79.82 Long term (current) use of aspirin
CPT/HCPCS: 94640; 99282; 99283-25; J7620-GY

== ENCOUNTER 2019-05-28 13:13 | Emergency (ER) | payer BC, OTHER ==
[2019-05-28] MEDS ORDERED: Lisinopril 10 MG Tab PO ONE (13:32)
--- NOTE | 2019-05-28 13:41 | EDM.PDOC ---
ED HPI GENERAL MEDICAL PROBLEM - General Chief Complaint: General Stated Complaint: FELL Time Seen by Provider: 05/28/19 13:17 Source of Information: Reports: Patient History Limitations: Reports: No Limitations - History of Present Illness INITIAL COMMENTS - FREE TEXT/NARRATIVE: HISTORY AND PHYSICAL: History of present illness: Patient is a 59-year-old female presents to the ED today with concern of right- sided rib injury that occurred just prior to arrival to the ED. Patient states she was out walking her dog when the police got tangled between her feet and she tripped and fell. Patient states she landed right on her right breast and caught herself from hitting her head and did not lose consciousness. Patient states since then she's had some rib pain underlying the area of her breast. Patient states other than this area there is no other pain or symptoms that she has. Patient states she does have a history of high blood pressure and has not taken her blood pressure medication for today. Patient has a history of hypertension, coronary artery disease status post 2 stent placements in 2018, obstructive sleep apnea, and type 2 diabetes. Patient denies fever, chills, chest pain, shortness of breath, or cough. Denies headache, neck stiff ness, change in vision, syncope, or near syncope. Denies nausea, vomiting, abdominal pain, diarrhea, constipation, or dysuria. Has not noted any blood in urine or stool. Patient has been eating and drinking appropriately. Review of systems: As per history of present illness and below otherwise all systems reviewed and negative. Past medical history: As per history of present illness and as reviewed below otherwise noncontributory. Surgical history: As per history of present illness and as reviewed below otherwise noncontributory. Social history: See social history for further information Family history: As per history of present illness and as reviewed below otherwise noncontributory. Physical exam: General: Patient is alert, oriented, and in no acute distress. Patient sitting comfortably on exam table. HEENT: Atraumatic, normocephalic, pupils equal and reactive bilaterally, negative for conjunctival pallor or scleral icterus, mucous membranes moist, TMs normal bilaterally, throat clear, neck supple, nontender, trachea midline. No drooling or trismus noted. No meningeal signs. No hot potato voice noted. Lungs: Clear to auscultation, breath sounds equal bilaterally. Patient does have pain with palpation over the right sided anterior chest wall/ribs. No obvious deformity/bruising/or erythema of this area including the right breast. Heart: S1S2, regular rate and rhythm without overt murmur Abdomen: Soft, nondistended, nontender. Negative for masses or hepatosplenomegaly. Negative for costovertebral tenderness. Pelvis: Stable nontender. Genitourinary: Deferred. Rectal: Deferred. Skin: Patient has some superficial abrasions of bilateral knees as well as right hand with minimal bleeding. Extremities: See skin: Otherwise, Atraumatic, negative for cords or calf pain. Neurovascular unremarkable. Patient has full range of motion of bilateral upper and lower extremities without pain or difficulty. Radial pulses grossly intact bilaterally. Dorsalis pedis and posterior tibial pulses intact bilaterally. Capillary refill less than 2 seconds of bilateral upper and lower extremities. Neuro: Awake, alert, oriented. Cranial nerves II through XII unremarkable. Cerebellum unremarkable. Motor and sensory unremarkable throughout. Exam nonfocal. Notes: Patient states she also has not taken her blood pressure medication today so will give this to her in the ED. Voices understanding and is agreeable to plan of care. Denies any further questions or concerns at this time. Diagnostics: CBC, CMP, UA, EKG, troponin, right-sided rib with chest x-ray, bilateral knee x- ray, right hand x-ray Therapeutics: Lisinopril, wound care Prescription: Diclofenac, Flexeril Impression: Right sided rib injury Bilateral knee injury Right hand injury Fall Plan: 1. Rest, ice, elevate the affected extremities/areas. You can apply ice and or heat 15 minutes on, 15 minutes off. 2. Tylenol as directed for pain management or discomfort. Take medication as prescribed. 3. Follow up with the primary care provider as discussed. Return to the ED as needed and as discussed. Definitive disposition and diagnosis as appropriate pending reevaluation and review of above. Chest Pain Score (Numeric/FACES): 7 - Related Data Allergies Allergy/AdvReac Type Severity Reaction Status Date / Time adhesive Allergy Itching Verified 05/28/19 13:28 aloe vera Allergy Blisters Verified 05/28/19 13:28 witch araceli Allergy Hives Verified 05/28/19 13:28 dust Allergy Cough Uncoded 05/28/19 13:28 Home Meds: Home Meds Venlafaxine [Effexor XR 24 Hr] 75 mg PO DAILY 01/24/16 [History] sitaGLIPtin Phos/Metformin HCl [Janumet 50-500 MG] 2 tab PO BEDTIME 02/03/17 [ History] Aspirin 81 mg PO BRK 02/22/17 [History] Cetirizine HCl [Zyrtec] 10 mg PO ASDIRECTED 12/18/17 [History] Latanoprost [Xalatan 0.005% Ophth Soln] 1 drop EYEBOTH BEDTIME 12/18/17 [History ] Lisinopril 10 mg PO DAILY 04/22/18 [History] Rosuvastatin Calcium 1 tab PO BEDTIME 11/11/18 [History] Cyclobenzaprine [Flexeril] 10 mg PO TID PRN #8 tab 05/28/19 [Rx] Diclofenac Sodium [Voltaren] 75 mg PO BIDMEALS PRN #15 tab.cr 05/28/19 [Rx] Past Medical History HEENT History: Reports: Hard of Hearing Cardiovascular History: Reports: Angina, CAD, Hypertension, Stents Other Cardiovascular History: stents x 16 Jan 2018 Respiratory History: Reports: Sleep Apnea Other Respiratory History: wears CPAP Gastrointestinal History: Reports: None Genitourinary History: Reports: None Psychiatric History: Reports: Anxiety, Depression Endocrine/Metabolic History: Reports: Diabetes, Type II - Infectious Disease History Infectious Disease History: Reports: Chicken Pox - Past Surgical History HEENT Surgical History: Reports: Tonsillectomy Cardiovascular Surgical History: Reports: Coronary Artery Stent Oncologic Surgical History: Reports: Biopsy of Breast Social & Family History - Family History Family Medical History: Noncontributory Cardiac: Reports: Afib, Bypass, Heart Failure, Hypertension, [place], Stent, Other ( See Below) Other Cardiac Family History: weak heart valve Neurological: Reports: CVA, Other (See Below) Other Neurological Family History: hemorragic stroke Endocrine/Metabolic: Reports: Diabetes, Type I, Diabetes, type II - Caffeine Use Caffeine Use: Reports: Coffee, Energy Drinks Caffeine Use Comment: 1 cup/day ED ROS GENERAL - Review of Systems Review Of Systems: ROS reveals no pertinent complaints other than HPI. ED EXAM, GENERAL - Physical Exam Exam: See Below (See dictation) Course - Vital Signs Last Recorded V/S: Last Vital Signs Temp 36.4 C 05/28/19 13:30 Pulse 77 05/28/19 15:05 Resp 18 05/28/19 13:30 BP 143/84 H 05/28/19 15:05 Pulse Ox 98 05/28/19 13:30 - Orders/Labs/Meds Orders: Active Orders 24 hr Category Date Time Status EKG Documentation Completion [RC] STAT Care 05/28/19 13:34 Active Knee 3V Bi [CR] Stat Exams 05/28/19 13:42 Taken Labs: Laboratory Tests 05/28/19 05/28/19 05/28/19 Range/Units 13:42 13:42 14:50 WBC 9.54 (4.0-11.0) K/uL RBC 4.84 (4.30-5.90) M/uL Hgb 13.9 (12.0-16.0) g/dL Hct 42.2 (36.0-46.0) % MCV 87.2 (80.0-98.0) fL MCH 28.7 (27.0-32.0) pg MCHC 32.9 (31.0-37.0) g/dL RDW Std Deviation 44.5 (28.0-62.0) fl RDW Coeff of Michelle 14 (11.0-15.0) % Plt Count 277 (150-400) K/uL MPV 11.20 (7.40-12.00) fL Neut % (Auto) 66.7 (48.0-80.0) % Lymph % (Auto) 21.1 (16.0-40.0) % [place] % (Auto) 7.2 (0.0-15.0) % Eos % (Auto) 4.4 (0.0-7.0) % Baso % (Auto) 0.6 (0.0-1.5) % Neut # (Auto) 6.4 H (1.4-5.7) K/uL Lymph # (Auto) 2.0 (0.6-2.4) K/uL [place] # (Auto) 0.7 (0.0-0.8) K/uL Eos # (Auto) 0.4 (0.0-0.7) K/uL Baso # (Auto) 0.1 (0.0-0.1) K/uL Nucleated RBC % 0.0 /100WBC Nucleated RBCs # 0 K/uL Sodium 139 (136-145) mmol/L Potassium 4.0 (3.5-5.1) mmol/L Chloride 103 (98-107) mmol/L Carbon Dioxide 25.7 (21.0-32.0) mmol/L BUN 8 (7.0-18.0) mg/dL Creatinine 0.7 (0.6-1.0) mg/dL Est Cr Clr Drug Dosing 70.13 mL/min Estimated GFR (MDRD) > 60.0 ml/min Glucose 237 H (74-106) mg/dL Calcium 8.7 (8.5-10.1) mg/dL Total Bilirubin 0.4 (0.2-1.0) mg/dL AST 54 H (15-37) IU/L ALT 52 (14-63) IU/L Alkaline Phosphatase 121 H (46-116) U/L Troponin I < 0.050 (0.000-0.056) ng/mL Total Protein 7.1 (6.4-8.2) g/dL Albumin 3.3 L (3.4-5.0) g/dL Globulin 3.8 (2.6-4.0) g/dL Albumin/Globulin Ratio 0.9 (0.9-1.6) Urine Color YELLOW Urine Appearance CLEAR Urine pH 5.5 (5.0-8.0) Ur Specific [place] 1.025 (1.001-1.035) Urine Protein NEGATIVE (NEGATIVE) mg/dL Urine Glucose (UA) >=1000 (NEGATIVE) mg/dL Urine Ketones NEGATIVE (NEGATIVE) mg/dL Urine Occult Blood NEGATIVE (NEGATIVE) Urine Nitrite NEGATIVE (NEGATIVE) Urine Bilirubin NEGATIVE (NEGATIVE) Urine Urobilinogen 0.2 (<2.0) EU/dL Ur Leukocyte Esterase NEGATIVE (NEGATIVE) Meds: Medications Discontinued Medications Generic Name Dose Route Start Last Admin Trade Name Freq PRN Reason Stop Dose Admin Lisinopril 10 mg 05/28/19 13:32 05/28/19 13:36 Prinivil PO 05/28/19 13:33 10 mg ONETIME ONE Administration Departure - Departure Time of Disposition: 15:50 Disposition: Home, Self-Care 01 Clinical Impression: Rib injury Knee injury Qualifiers: Encounter type: initial encounter Laterality: unspecified laterality Qualified Code(s): S89.90XA - Unspecified injury of unspecified lower leg, initial encounter Hand injury Qualifiers: Encounter type: initial encounter Laterality: right Qualified Code(s): S69.91XA - Unspecified injury of right wrist, hand and finger(s), initial encounter Fall Qualifiers: Encounter type: initial encounter Qualified Code(s): W19.XXXA - Unspecified fall, initial encounter - Discharge Information Prescriptions: Cyclobenzaprine [Flexeril] 10 mg PO TID PRN #8 tab PRN Reason: Spasms Diclofenac Sodium [Voltaren] 75 mg PO BIDMEALS PRN #15 tab.cr PRN Reason: Pain Referrals: PCP,Unknown [Primary Care Provider] - Forms: ED Department Discharge Additional Instructions: The following information is given to patients seen in the emergency department who are being discharged to home. This information is to outline your options for follow-up care. We provide all patients seen in our emergency department with a follow-up referral. The need for follow-up, as well as the timing and circumstances, are variable depending upon the specifics of your emergency department visit. If you don't have a primary care physician on staff, we will provide you with a referral. We always advise you to contact your personal physician following an emergency department visit to inform them of the circumstance of the visit and for follow-up with them and/or the need for any referrals to a consulting specialist. The emergency department will also refer you to a specialist when appropriate. This referral assures that you have the opportunity for follow-up care with a specialist. All of these measure are taken in an effort to provide you with optimal care, which includes your follow-up. Under all circumstances we always encourage you to contact your private physician who remains a resource for coordinating your care. When calling for follow-up care, please make the office aware that this follow-up is from your recent emergency room visit. If for any reason you are refused follow-up, please contact the [facility] Emergency Department at and asked to speak to the emergency department charge nurse. [facility] [address] [place] [id number] [address] [place] [address] 1. Rest, ice, elevate the affected extremities/areas. You can apply ice and or heat 15 minutes on, 15 minutes off. 2. Tylenol as directed for pain management or discomfort. Take medication as prescribed. 3. Follow up with the primary care provider as discussed. Return to the ED as needed and as discussed. - My Orders Last 24 Hours: My Active Orders 05/28/19 13:34 EKG Documentation Completion [RC] STAT 05/28/19 13:42 Knee 3V Bi [CR] Stat - Assessment/Plan Last 24 Hours: My Active Orders 05/28/19 13:34 EKG Documentation Completion [RC] STAT 05/28/19 13:42 Knee 3V Bi [CR] Stat
[2019-05-28 14:24] LABS: BLOOD UREA NITROGEN,BUN 8 mg/dL (7.0-18.0); CARBON DIOXIDE,CO2 25.7 mmol/L (21.0-32.0); CHLORIDE,CL 103 mmol/L (98-107); GLUCOSE RANDOM 237 mg/dL (74-106); SODIUM,NA 139 mmol/L (136-145)
--- NOTE | 2019-05-28 15:47 | CR ---
INDICATION: Trauma TECHNIQUE: Three views right hand COMPARISON: None FINDINGS: Bones: Alignment is normal. No fractures or bone lesions. Joint spaces: Degenerative changes carpal/metacarpal joint space of the thumb and mild degenerative changes PIP and DIP joint spaces. Soft tissues: Unremarkable. IMPRESSION: No evidence of acute trauma. Dictated by Kj Snow MD @ 05/28/2019 3:45:04 PM Dictated by: Kj Snow MD @ 05/28/2019 15:45:09 (Electronically Signed)
--- NOTE | 2019-05-28 15:50 | CR ---
INDICATION: Trauma TECHNIQUE: Chest and right ribs 2 views. COMPARISON: 02/10/2019 FINDINGS: Cardiovascular and mediastinum: Heart size and vasculature are normal in caliber and appearance. Mediastinum is within normal limits. Lungs and pleural spaces: Lungs are clear. No sign of infiltrate or mass. No sign of pleural effusion. No pneumothorax. Bones and soft tissues: Detailed oblique images of the right ribs demonstrate no fractures or bone lesions. IMPRESSION: Unremarkable chest and right ribs. Dictated by Kj Snow MD @ 05/28/2019 3:46:58 PM Dictated by: Kj Snow MD @ 05/28/2019 15:48:36 (Electronically Signed)
--- NOTE | 2019-05-28 15:52 | CR ---
INDICATION: Trauma TECHNIQUE: Two views right left knees COMPARISON: None FINDINGS: Bones: Alignment is normal. No fractures or bone lesions. Joint spaces: Degenerative changes patellofemoral joints bilaterally.. Soft tissues: Unremarkable. IMPRESSION: No evidence of acute trauma. Dictated by Kj Snow MD @ 05/28/2019 3:49:55 PM Dictated by: Kj Snow MD @ 05/28/2019 15:50:06 (Electronically Signed)
[2019-05-28 16:03] VITALS: BP 160/82; PULSE 82
== END 2019-05-28 16:01 | disposition home or self-care (01) ==
LOC: MW.ED 13:13
DX: S80.211A Abrasion, right knee, initial encounter (principal); S80.212A Abrasion, left knee, initial encounter; S60.511A Abrasion of right hand, initial encounter; S29.9XXA Unspecified injury of thorax, initial encounter; I10 Essential (primary) hypertension; I25.10 Atherosclerotic heart disease of native coronary artery without angina pectoris; E11.9 Type 2 diabetes mellitus without complications; Z95.5 Presence of coronary angioplasty implant and graft; W01.0XXA Fall on same level from slipping, tripping and stumbling without subsequent striking against object, initial encounter
CPT/HCPCS: 36415; 71101; 73130; 73562; 80053; 81003; 84484; 85025; 93005; 99284; A9270

== ENCOUNTER 2020-01-23 19:17 | Emergency (ER) | payer BC, MEDICAID, OTHER ==
--- NOTE | 2020-01-23 19:25 | EDM.PDOC ---
ED HPI GENERAL MEDICAL PROBLEM - General Chief Complaint: Lower Extremity Injury/Pain Stated Complaint: left ankle injury Time Seen by Provider: 01/23/20 19:22 Source of Information: Reports: Patient History Limitations: Reports: No Limitations - History of Present Illness INITIAL COMMENTS - FREE TEXT/NARRATIVE: HISTORY AND PHYSICAL: History of present illness: Patient is a 59-year-old female presents to the ED with complaint of left ankle injury. Patient states she was walking out her sliding door trying when she stepped on her left foot wrong twisting her ankle inward. She states she has had some burning discomfort since then. She has been able to bear weight on it with some discomfort. Denies proximal knee pain or distal numbness or tingling. Review of systems: As per history of present illness and below otherwise all systems reviewed and negative. Past medical history: As per history of present illness and as reviewed below otherwise noncontributory. Surgical history: As per history of present illness and as reviewed below otherwise noncontributory. Social history: No reported history of drug or alcohol abuse. Family history: As per history of present illness and as reviewed below otherwise noncontributory. Physical exam: General: Patient sitting comfortably in no acute distress and nontoxic appearing HEENT: Atraumatic, normocephalic, pupils reactive, negative for conjunctival pallor or scleral icterus, mucous membranes moist, throat clear, neck supple, nontender, trachea midline. No meningeal signs. Extremities: left lateral malleolus swelling. skin is intact. Pain to palpation of soft tissue around left lateral malleolus. No pain with distal or proximal tib fib squeeze. negative for cords or calf pain. Neurovascular unremarkable. Neuro: Awake, alert, oriented. Cranial nerves II through XII unremarkable. Cerebellum unremarkable. Motor and sensory unremarkable throughout. Exam nonfocal. Notes: Diagnostics: x-ray left ankle Therapeutics: CAM boot given to patient for left ankle sprain Prescriptions: none Impression: Left ankle injury Plan: 1. Ice, elevate, and motrin or tylenol as needed 2. Follow up with orthopedics, please call the number provided to schedule an appointment 3. Return to ED as needed as discussed Definitive disposition and diagnosis as appropriate pending reevaluation and review of above. left ankle Pain Score (Numeric/FACES): 1 - Related Data Allergies Allergy/AdvReac Type Severity Reaction Status Date / Time adhesive Allergy Itching Verified 01/23/20 19:29 aloe vera Allergy Blisters Verified 01/23/20 19:29 witch araceli Allergy Hives Verified 01/23/20 19:29 dust Allergy Cough Uncoded 01/23/20 19:29 Home Meds: Home Meds Venlafaxine [Effexor XR 24 Hr] 75 mg PO DAILY 01/24/16 [History] sitaGLIPtin Phos/Metformin HCl [Janumet 50-500 MG] 2 tab PO BEDTIME 02/03/17 [ History] Aspirin 81 mg PO BRK 02/22/17 [History] Cetirizine HCl [Zyrtec] 10 mg PO ASDIRECTED 12/18/17 [History] Latanoprost [Xalatan 0.005% Oph Soln] 1 drop EYEBOTH BEDTIME 12/18/17 [History ] Lisinopril 10 mg PO DAILY 04/22/18 [History] Rosuvastatin Calcium 1 tab PO BEDTIME 11/11/18 [History] Empagliflozin [Jardiance] mg PO DAILY 01/23/20 [History] Sucralfate gm PO DAILY 01/23/20 [History] Past Medical History HEENT History: Reports: Hard of Hearing Cardiovascular History: Reports: Angina, CAD, Hypertension, Stents Other Cardiovascular History: stents x 16 Jan 2018 Respiratory History: Reports: Sleep Apnea Other Respiratory History: wears CPAP Gastrointestinal History: Reports: None Genitourinary History: Reports: None Psychiatric History: Reports: Anxiety, Depression Endocrine/Metabolic History: Reports: Diabetes, Type II - Infectious Disease History Infectious Disease History: Reports: Chicken Pox - Past Surgical History HEENT Surgical History: Reports: Tonsillectomy Cardiovascular Surgical History: Reports: Coronary Artery Stent Oncologic Surgical History: Reports: Biopsy of Breast Social & Family History - Family History Family Medical History: Noncontributory Cardiac: Reports: Afib, Bypass, Heart Failure, Hypertension, [place], Stent, Other ( See Below) Other Cardiac Family History: weak heart valve Neurological: Reports: CVA, Other (See Below) Other Neurological Family History: hemorragic stroke Endocrine/Metabolic: Reports: Diabetes, Type I, Diabetes, type II - Caffeine Use Caffeine Use: Reports: Coffee, Energy Drinks Caffeine Use Comment: 1 cup/day Review of Systems - Review of Systems Review Of Systems: Comprehensive ROS is negative, except as noted in HPI. ED EXAM, GENERAL - Physical Exam Exam: See Below (see dictation) Course - Vital Signs Last Recorded V/S: Last Vital Signs Temp 97.1 F 01/23/20 19:31 Pulse 92 01/23/20 19:31 Resp 17 01/23/20 19:31 BP 150/77 H 01/23/20 19:31 Pulse Ox 95 01/23/20 19:31 - Orders/Labs/Meds Orders: Active Orders 24 hr Category Date Time Status DME for Discharge [COMM] Stat Oth 01/23/20 20:05 Ordered Departure - Departure Time of Disposition: 20:02 Disposition: Home, Self-Care 01 Condition: Good Clinical Impression: Left ankle injury - Discharge Information Referrals: Ky Camacho MD [Primary Care Provider] - Forms: ED Department Discharge Additional Instructions: The following information is given to patients seen in the emergency department who are being discharged to home. This information is to outline your options for follow-up care. We provide all patients seen in our emergency department with a follow-up referral. The need for follow-up, as well as the timing and circumstances, are variable depending upon the specifics of your emergency department visit. If you don't have a primary care physician on staff, we will provide you with a referral. We always advise you to contact your personal physician following an emergency department visit to inform them of the circumstance of the visit and for follow-up with them and/or the need for any referrals to a consulting specialist. The emergency department will also refer you to a specialist when appropriate. This referral assures that you have the opportunity for follow-up care with a specialist. All of these measure are taken in an effort to provide you with optimal care, which includes your follow-up. Under all circumstances we always encourage you to contact your private physician who remains a resource for coordinating your care. When calling for follow-up care, please make the office aware that this follow-up is from your recent emergency room visit. If for any reason you are refused follow-up, please contact the [facility] Emergency Department at and asked to speak to the emergency department charge nurse. [facility] [address] [place] [id number] [facility] [address] [place] [id number] [facility] - [facility] Professional Building [address] [facility], [address] [place] [address] 1. Ice, elevate, and motrin or tylenol as needed 2. Follow up with orthopedics, please call the number provided to schedule an appointment 3. Return to ED as needed as discussed Sepsis Event Note - Focused Exam Vital Signs: Vital Signs Temp Pulse Resp BP Pulse Ox 01/23/20 19:31 97.1 F 92 17 150/77 H 95 Date Exam was Performed: 01/23/20 Time Exam was Performed: 20:05 - My Orders Last 24 Hours: My Active Orders 01/23/20 20:05 DME for Discharge [COMM] Stat - Assessment/Plan Last 24 Hours: My Active Orders 01/23/20 20:05 DME for Discharge [COMM] Stat
--- NOTE | 2020-01-23 19:57 | CR ---
Left ankle: 3 views left ankle were obtained. Comparison: No previous ankle study is available. Findings: Plantar spur is noted. Smaller spur is noted at the attachment of the Achilles tendon to the calcaneus. Scattered joint space narrowing within the mid foot with osteophytes is noted. Detach bony density is noted off the medial talus compatible with old injury. Mild deformity is noted within the distal fibula compatible with old injury. No acute fracture or dislocation is seen. Soft tissue swelling is noted. Impression: 1. Calcaneal spurs. 2. Degenerative change as noted above. 3. Evidence of old injury. 4. No acute bony abnormality is seen. 5. Soft tissue swelling. Diagnostic code #3 This report was dictated in MDT
[2020-01-23 20:29] VITALS: BP 122/76; PULSE 91
== END 2020-01-23 20:22 | disposition home or self-care (01) ==
LOC: MW.ED 19:17
DX: S99.912A Unspecified injury of left ankle, initial encounter (principal); I25.10 Atherosclerotic heart disease of native coronary artery without angina pectoris; I10 Essential (primary) hypertension; Z95.5 Presence of coronary angioplasty implant and graft; E11.9 Type 2 diabetes mellitus without complications; Z79.82 Long term (current) use of aspirin; Z79.84 Long term (current) use of oral hypoglycemic drugs; Z79.899 Other long term (current) drug therapy; Z91.048 Other nonmedicinal substance allergy status; Z91.09 Other allergy status, other than to drugs and biological substances; X50.1XXA Overexertion from prolonged static or awkward postures, initial encounter
CPT/HCPCS: 73610-26-LT; 73610-LT; 99283; 99283-25

== ENCOUNTER 2020-03-11 16:13 | Emergency (ER) | payer MEDICAID, OTHER ==
[2020-03-11] MEDS ORDERED: Bacitracin Oint 1 GM U/D Packet TOP ONE (16:43)
--- NOTE | 2020-03-11 16:47 | EDM.PDOC ---
ED HPI GENERAL MEDICAL PROBLEM - General Chief Complaint: Lower Extremity Injury/Pain Stated Complaint: KNEE PAIN Time Seen by Provider: 03/11/20 16:23 - History of Present Illness INITIAL COMMENTS - FREE TEXT/NARRATIVE: History of present illness: [] Patient presents with right knee pain after a fall sustained earlier today as she was walking on a boardwalk and struck an uneven board with her right foot tripping falling onto her knees with an abrasion to both knees but the right knee became very swollen and painful and difficult to bear weight on throughout the day. She has applied ice and some Band-Aids to the abrasions on her knees but she is now having increased pain and swelling of the right knee no other injuries no other complaints nothing makes it better or worse has a history of diabetes heart disease. No blood thinners Review of systems: As per history of present illness and below otherwise all systems reviewed and negative. Past medical history: As per history of present illness and as reviewed below otherwise noncontributory. Surgical history: As per history of present illness and as reviewed below otherwise noncontributory. Social history: No reported history of drug or alcohol abuse. Family history: As per history of present illness and as reviewed below otherwise noncontributory. Physical exam: HEENT: Atraumatic, normocephalic, pupils reactive, negative for conjunctival pallor or scleral icterus, mucous membranes moist, throat clear, neck supple, nontender, trachea midline. Lungs: Clear to auscultation, breath sounds equal bilaterally, chest nontender. Heart: S1S2, regular, negative for clicks, rubs, or JVD. Abdomen: Soft, nondistended, nontender. Negative for masses or hepatosplenomegaly. Negative for costovertebral tenderness. Pelvis: Stable nontender. Genitourinary: Deferred. Rectal: Deferred. Extremities: Atraumatic, negative for cords or calf pain. Neurovascular unremarkable. The right knee is swollen and tender the mortise is stable there is good distal pulse motor and sensation. Neuro: Awake, alert, oriented. Cranial nerves II through XII unremarkable. Cerebellum unremarkable. Motor and sensory unremarkable throughout. Exam nonfocal. Skin: There are bilateral superficial abrasions to the knees Diagnostics: [] Therapeutics: [] Impression: Contusion [] Plan: We will obtain an x-ray of the right knee and reevaluate the patient. [] Definitive disposition and diagnosis as appropriate pending reevaluation and review of above. Right Knee Pain Score (Numeric/FACES): 3 - Related Data Allergies Allergy/AdvReac Type Severity Reaction Status Date / Time adhesive Allergy Itching Verified 03/11/20 16:45 aloe vera Allergy Blisters Verified 03/11/20 16:45 witch araceli Allergy Hives Verified 03/11/20 16:45 dust Allergy Cough Uncoded 03/11/20 16:45 Home Meds: Home Meds Venlafaxine [Effexor XR 24 Hr] 75 mg PO DAILY 01/24/16 [History] sitaGLIPtin Phos/Metformin HCl [Janumet 50-500 MG] 2 tab PO BEDTIME 02/03/17 [History] Lisinopril 10 mg PO DAILY 04/22/18 [History] Rosuvastatin Calcium 1 tab PO BEDTIME 11/11/18 [History] Empagliflozin [Jardiance] 1 tab PO DAILY 01/23/20 [History] Past Medical History HEENT History: Reports: Hard of Hearing Cardiovascular History: Reports: Angina, CAD, Hypertension, Stents Other Cardiovascular History: stents x 16 Jan 2018 Respiratory History: Reports: Sleep Apnea Other Respiratory History: wears CPAP Gastrointestinal History: Reports: None Genitourinary History: Reports: None Psychiatric History: Reports: Anxiety, Depression Endocrine/Metabolic History: Reports: Diabetes, Type II - Infectious Disease History Infectious Disease History: Reports: Chicken Pox - Past Surgical History HEENT Surgical History: Reports: Tonsillectomy Cardiovascular Surgical History: Reports: Coronary Artery Stent Oncologic Surgical History: Reports: Biopsy of Breast Social & Family History - Family History Family Medical History: Noncontributory Cardiac: Reports: Afib, Bypass, Heart Failure, Hypertension, [place], Stent, Other (See Below) Other Cardiac Family History: weak heart valve Neurological: Reports: CVA, Other (See Below) Other Neurological Family History: hemorragic stroke Endocrine/Metabolic: Reports: Diabetes, Type I, Diabetes, type II - Caffeine Use Caffeine Use: Reports: Coffee, Energy Drinks Caffeine Use Comment: 1 cup/day Review of Systems - Review of Systems Review Of Systems: See Below ED EXAM, GENERAL - Physical Exam Exam: See Below Course - Vital Signs Text/Narrative:: The right knee read and interpreted by me no acute fractures or dislocations are appreciated patient will be placed in an immobilizer given crutches follow-up with orthopedics naproxen at home elevate and ice. Last Recorded V/S: Last Vital Signs Temp 35.7 C L 03/11/20 16:47 Pulse 89 03/11/20 16:47 Resp 18 03/11/20 16:47 BP 146/83 H 03/11/20 16:47 Pulse Ox 95 03/11/20 16:47 - Orders/Labs/Meds Orders: Active Orders 24 hr Category Date Time Status Knee 3V Rt [CR] Stat Exams 03/11/20 16:43 Ordered Meds: Medications Discontinued Medications Generic Name Dose Route Start Last Admin Trade Name Yinka PRN Reason Stop Dose Admin Bacitracin 1 dose 03/11/20 16:43 03/11/20 17:15 Bacitracin Oint 1 Gm TOP 03/11/20 16:44 1 dose ONETIME ONE Administration Departure - Departure Time of Disposition: 17:20 Disposition: Home, Self-Care 01 Condition: Good Clinical Impression: Knee contusion - Discharge Information *PRESCRIPTION DRUG MONITORING PROGRAM REVIEWED*: Not Applicable *COPY OF PRESCRIPTION DRUG MONITORING REPORT IN PATIENT YUN: Not Applicable Instructions: How to Use a Knee Immobilizer, [id number], Contusion, [id number] Referrals: Ky Camacho MD [Primary Care Provider] - Forms: ED Department Discharge Additional Instructions: The following information is given to patients seen in the emergency department who are being discharged to home. This information is to outline your options for follow-up care. We provide all patients seen in our emergency department with a follow-up referral. The need for follow-up, as well as the timing and circumstances, are variable depending upon the specifics of your emergency department visit. If you don't have a primary care physician on staff, we will provide you with a referral. We always advise you to contact your personal physician following an emergency department visit to inform them of the circumstance of the visit and for follow-up with them and/or the need for any referrals to a consulting specialist. The emergency department will also refer you to a specialist when appropriate. This referral assures that you have the opportunity for follow-up care with a specialist. All of these measure are taken in an effort to provide you with optimal care, which includes your follow-up. Under all circumstances we always encourage you to contact your private physician who remains a resource for coordinating your care. When calling for follow-up care, please make the office aware that this follow-up is from your recent emergency room visit. If for any reason you are refused follow-up, please contact the [facility] Emergency Department at and asked to speak to the emergency department charge nurse. [facility] [address], [address] [place] [address] Sepsis Event Note (ED) - Focused Exam Vital Signs: Vital Signs Temp Pulse Resp BP Pulse Ox 03/11/20 16:47 35.7 C L 89 18 146/83 H 95 - My Orders Last 24 Hours: My Active Orders 03/11/20 16:43 Knee 3V Rt [CR] Stat - Assessment/Plan Last 24 Hours: My Active Orders 03/11/20 16:43 Knee 3V Rt [CR] Stat
[2020-03-11 16:49] VITALS: BP 146/83; PULSE 89
--- NOTE | 2020-03-11 17:28 | CR ---
Right knee: AP, lateral and sunrise patellar views of the right knee were obtained. Comparison: Previous knee exam of 05/28 size 19. Severe lateral joint space narrowing is noted within the patellofemoral joint with lateral osteophytes. Mild medial joint space narrowing is seen. Lateral joint space is preserved. No joint effusion is seen. Nothing acute is identified. Impression: 1. Degenerative change as noted above. 2. Nothing acute is seen on 3 view right knee exam. Diagnostic code #2 Study was dictated in MDT
== END 2020-03-11 17:45 | disposition home or self-care (01) ==
LOC: MW.ED 16:13
DX: S80.01XA Contusion of right knee, initial encounter (principal); I10 Essential (primary) hypertension; I25.10 Atherosclerotic heart disease of native coronary artery without angina pectoris; F41.9 Anxiety disorder, unspecified; F32.9 Major depressive disorder, single episode, unspecified; E11.9 Type 2 diabetes mellitus without complications; Z79.84 Long term (current) use of oral hypoglycemic drugs; Z79.899 Other long term (current) drug therapy; Z91.048 Other nonmedicinal substance allergy status; Z91.09 Other allergy status, other than to drugs and biological substances; Z95.5 Presence of coronary angioplasty implant and graft; W01.198A Fall on same level from slipping, tripping and stumbling with subsequent striking against other object, initial encounter
CPT/HCPCS: 73562-26-RT; 73562-RT; 99282; 99283-25

== ENCOUNTER 2020-03-11 22:28 | Emergency (ER) | payer OTHER ==
[2020-03-11] MEDS ORDERED: Acetaminophen/HYDROcodone 325-5 MG Tab PO ONE (23:01)
[2020-03-11] MEDS ORDERED: Acetaminophen 500 MG Tab PO ONE (23:01)
--- NOTE | 2020-03-11 23:07 | EDM.PDOC ---
ED HPI GENERAL MEDICAL PROBLEM - General Chief Complaint: General Stated Complaint: EMS ARRIVAL Time Seen by Provider: 03/11/20 23:01 - History of Present Illness INITIAL COMMENTS - FREE TEXT/NARRATIVE: History of present illness: 59-year-old female brought by EMS for right knee pain. She apparently had an injury earlier today where she landed on her knee around 10 AM. She was actually seen here in this emergency department after that had a negative for fracture x-ray but was told she had a hematoma and was placed in a knee immobilizer. She has been icing the knee and took an Aleve but noticed that the pain continued and that it was very painful to bear weight and she was worried that there may be something else more severe going on. So she returned here. She is worried that she has a blood clot and is requesting an MRI of the knee. Review of systems: As per history of present illness and below otherwise all systems reviewed and negative. Past medical history: As per history of present illness and as reviewed below otherwise noncontributory. Coronary artery disease Surgical history: As per history of present illness and as reviewed below otherwise noncontributory. Cardiac stenting, cholecystectomy Social history: No reported history of drug or alcohol abuse. Family history: As per history of present illness and as reviewed below otherwise noncontributory. Physical exam: GEN: no acute distress, well appearing HEENT: Atraumatic, normocephalic, mucous membranes moist, Neck: supple Lungs: No respiratory distress. Heart: RRR Back: nontender Extremities: Right knee tender to palpation, with ecchymosis and effusion. Likely hematoma palpable as well, limited range of motion due to pain. No ligamentous instability. Abrasion over the knee. Neurovascularly intact. No tenderness to palpation over the calf, posterior knee or thigh. Neuro: Awake, alert, oriented. Neuro Exam nonfocal. Psych: Appears anxious Skin: warm, dry, ecchymosis and abrasion as described above on the right knee Diagnostics: Reviewed x-ray from earlier today Therapeutics: [place], Blayne wrap MDM: Impression: [] Plan: [] Definitive disposition and diagnosis as appropriate pending reevaluation and review of above. Right Knee Pain Score (Numeric/FACES): 3 - Related Data Allergies Allergy/AdvReac Type Severity Reaction Status Date / Time adhesive Allergy Itching Verified 03/11/20 22:38 aloe vera Allergy Blisters Verified 03/11/20 22:38 witch araceli Allergy Hives Verified 03/11/20 22:38 dust Allergy Cough Uncoded 03/11/20 22:38 Home Meds: Home Meds Venlafaxine [Effexor XR 24 Hr] 75 mg PO DAILY 01/24/16 [History] sitaGLIPtin Phos/Metformin HCl [Janumet 50-500 MG] 2 tab PO BEDTIME 02/03/17 [History] Lisinopril 10 mg PO DAILY 04/22/18 [History] Rosuvastatin Calcium 1 tab PO BEDTIME 11/11/18 [History] Empagliflozin [Jardiance] 1 tab PO DAILY 01/23/20 [History] Naproxen Sodium [Anaprox DS] 550 mg PO BID #20 tab 03/11/20 [Rx] Acetaminophen/HYDROcodone [Athens 325-5 MG] 1 tab PO Q8H PRN #15 tablet 03/12/20 [Rx] Past Medical History HEENT History: Reports: Hard of Hearing Cardiovascular History: Reports: Angina, CAD, Hypertension, Stents Other Cardiovascular History: stents x 16 Jan 2018 Respiratory History: Reports: Sleep Apnea Other Respiratory History: wears CPAP Gastrointestinal History: Reports: None Genitourinary History: Reports: None [employer] History: Reports: None Musculoskeletal History: Reports: None Neurological History: Reports: None Psychiatric History: Reports: Anxiety, Depression Endocrine/Metabolic History: Reports: Diabetes, Type II Hematologic History: Reports: None Immunologic History: Reports: None Oncologic (Cancer) History: Reports: None Dermatologic History: Reports: None - Infectious Disease History Infectious Disease History: Reports: None - Past Surgical History Head Surgeries/Procedures: Reports: None HEENT Surgical History: Reports: Tonsillectomy Cardiovascular Surgical History: Reports: Coronary Artery Stent GI Surgical History: Reports: Hernia Repair/Other Oncologic Surgical History: Reports: Biopsy of Breast Social & Family History - Family History Family Medical History: Noncontributory Cardiac: Reports: Afib, Bypass, Heart Failure, Hypertension, [place], Stent, Other (See Below) Other Cardiac Family History: weak heart valve Neurological: Reports: CVA, Other (See Below) Other Neurological Family History: hemorragic stroke Endocrine/Metabolic: Reports: Diabetes, Type I, Diabetes, type II - Tobacco Use Smoking Status *Q: Never Smoker - Caffeine Use Caffeine Use: Reports: Coffee, Energy Drinks Caffeine Use Comment: 1 cup/day - Recreational Drug Use Recreational Drug Use: No ED ROS GENERAL - Review of Systems Review Of Systems: See Below (See HPI) ED EXAM, GENERAL - Physical Exam Exam: See Below (See HPI) Course - Vital Signs Text/Narrative:: Expected progression of ecchymosis after fall earlier this morning. Patient in no acute distress. No calf or thigh tenderness. No signs or symptoms of DVT. No ligamentous instability on examination of the knee. We will place an Blayne wrap underneath the knee immobilizer. Discussed good pain control. Will prescribe Athens and told patient to add 1 extra dose of extra strength Tylenol as well. Patient has been taking Aleve, however I recommended avoiding the Aleve as the patient is also on aspirin for her coronary artery disease. Discussed plan to continue icing the knee and follow-up with orthopedics as soon as possible. She has not yet followed up with orthopedics physician that she was referred to from the emergency department earlier today. Last Recorded V/S: Last Vital Signs Temp 96.5 F L 03/11/20 22:35 Pulse 81 03/12/20 00:10 Resp 16 03/12/20 00:10 BP 122/59 L 03/12/20 00:10 Pulse Ox 94 L 03/12/20 00:10 - Orders/Labs/Meds Orders: Active Orders 24 hr Category Date Time Status BLAYNE Bandage [Elastic Wrap] [OM.PC] Stat Oth 03/11/20 23:01 Ordered Meds: Medications Discontinued Medications Generic Name Dose Route Start Last Admin Trade Name Yinka PRN Reason Stop Dose Admin Acetaminophen 500 mg 03/11/20 23:01 03/12/20 00:08 Tylenol Extra Strength PO 03/11/20 23:02 500 mg ONETIME ONE Administration Hydrocodone Bitart/Acetaminophen 1 tab 03/11/20 23:01 03/12/20 00:09 Athens 325-5 Mg PO 03/11/20 23:02 1 tab ONETIME ONE Administration - Re-Assessments/Exams Free Text/Narrative Re-Assessment/Exam: 03/12/20 00:12 The patient is feeling much better now. Her pain is at a tolerable level. We discussed plan of care, including plan for Blayne wrap to the knee as well as the knee immobilizer, avoid weightbearing whenever possible to give her any time to rest and she reports that she was using her family walker which she thought helped her more than the crutches. Therefore she can continue to use that. Discussed that she needs to follow-up with orthopedics for further work-up. Departure - Departure Time of Disposition: 00:13 Disposition: Home, Self-Care 01 Clinical Impression: Hematoma of right knee region Knee contusion Qualifiers: Encounter type: subsequent encounter Laterality: right Qualified Code(s): S80.01XD - Contusion of right knee, subsequent encounter - Discharge Information Prescriptions: Acetaminophen/HYDROcodone [Athens 325-5 MG] 1 tab PO Q8H PRN #15 tablet PRN Reason: Pain (Severe 7-10) Instructions: Contusion, [id number] Referrals: PCP,None [Primary Care Provider] - Forms: ED Department Discharge Additional Instructions: The following information is given to patients seen in the emergency department who are being discharged to home. This information is to outline your options for follow-up care. We provide all patients seen in our emergency department with a follow-up referral. The need for follow-up, as well as the timing and circumstances, are variable depending upon the specifics of your emergency department visit. If you don't have a primary care physician on staff, we will provide you with a referral. We always advise you to contact your personal physician following an emergency department visit to inform them of the circumstance of the visit and for follow-up with them and/or the need for any referrals to a consulting specialist. The emergency department will also refer you to a specialist when appropriate. This referral assures that you have the opportunity for follow-up care with a specialist. All of these measure are taken in an effort to provide you with optimal care, which includes your follow-up. Under all circumstances we always encourage you to contact your private physician who remains a resource for coordinating your care. When calling for follow-up care, please make the office aware that this follow-up is from your recent emergency room visit. If for any reason you are refused follow-up, please contact the [facility] Emergency Department at and asked to speak to the emergency department charge nurse. Please follow-up with orthopedic surgeon to whom you were referred earlier today at your prior ER visit. Please use the Blayne wrap for comfort and compression as well as keep the knee immobilizer on for stability. You may use crutches or walker to get around. To ice the area. Sepsis Event Note (ED) - Evaluation Sepsis Screening Result: No Definite Risk - Focused Exam Vital Signs: Vital Signs Temp Pulse Resp BP Pulse Ox 03/12/20 00:10 81 16 122/59 L 94 L 03/11/20 22:35 96.5 F L 91 18 164/85 H 94 L - My Orders Last 24 Hours: My Active Orders 03/11/20 23:01 BLAYNE Bandage [Elastic Wrap] [OM.PC] Stat - Assessment/Plan Last 24 Hours: My Active Orders 03/11/20 23:01 BLAYNE Bandage [Elastic Wrap] [OM.PC] Stat
[2020-03-12 00:11] VITALS: BP 122/59; PULSE 81
== END 2020-03-12 00:27 | disposition home or self-care (01) ==
LOC: MW.ED 22:28
DX: S80.01XA Contusion of right knee, initial encounter (principal); I10 Essential (primary) hypertension; E11.9 Type 2 diabetes mellitus without complications; I25.10 Atherosclerotic heart disease of native coronary artery without angina pectoris; Z91.048 Other nonmedicinal substance allergy status; Z79.899 Other long term (current) drug therapy; Z95.5 Presence of coronary angioplasty implant and graft; X50.9XXA Other and unspecified overexertion or strenuous movements or postures, initial encounter
CPT/HCPCS: 99283; A9270

== ENCOUNTER 2021-10-20 21:10 | Emergency (ER) | payer BC, MEDICAID ==
[2021-10-21] MEDS ORDERED: Dexamethasone 4 MG Tab PO STA (00:17)
[2021-10-21] MEDS ORDERED: diphenhydrAMINE 50 MG Cap PO ONE (00:18)
[2021-10-21 01:22] VITALS: BP 124/74; PULSE 91
== END 2021-10-21 01:22 | disposition home or self-care (01) ==
LOC: MW.ED 21:10
DX: L50.9 Urticaria, unspecified (principal); I25.119 Atherosclerotic heart disease of native coronary artery with unspecified angina pectoris; I10 Essential (primary) hypertension; E11.9 Type 2 diabetes mellitus without complications; Z86.16 Personal history of COVID-19; Z91.048 Other nonmedicinal substance allergy status; Z79.899 Other long term (current) drug therapy
CPT/HCPCS: 99282; A9270; J8540

== ENCOUNTER 2021-11-14 18:39 | Emergency (ER) | payer MEDICAID ==
[2021-11-14] MEDS: Sodium Chloride 0.9% 2.5 ML Syringe FLUSH PRN (19:17)
[2021-11-14] MEDS: Sodium Chloride 0.9% 10 ML Syringe FLUSH PRN (19:17)
[2021-11-14 19:44] LABS: BLOOD UREA NITROGEN,BUN 6 mg/dL (7.0-18.0); CARBON DIOXIDE,CO2 27.6 mmol/L (21.0-32.0); CHLORIDE,CL 101 mmol/L (98-107); GLUCOSE RANDOM 175 mg/dL (74-106); POTASSIUM,K 3.7 mmol/L (3.5-5.1); SODIUM,NA 141 mmol/L (136-145)
[2021-11-14] MEDS: Iopamidol 755 MG/ML 500 ML Multipack Bottle IVPUSH STA (20:10)
[2021-11-14 20:59] LABS: CORONAVIRUS COVID-19 NAA POSITIVE (NEGATIVE); INFLUENZA A NAA NEGATIVE (NEGATIVE); INFLUENZA B NAA NEGATIVE (NEGATIVE)
[2021-11-14 21:49] VITALS: BP 166/85; PULSE 71
== END 2021-11-14 21:49 | disposition home or self-care (01) ==
LOC: MW.ED 18:39
DX: U07.1 COVID-19 (principal); J12.82 Pneumonia due to coronavirus disease 2019; I25.119 Atherosclerotic heart disease of native coronary artery with unspecified angina pectoris; I10 Essential (primary) hypertension; E11.9 Type 2 diabetes mellitus without complications; Z95.5 Presence of coronary angioplasty implant and graft; Z86.16 Personal history of COVID-19; Z91.048 Other nonmedicinal substance allergy status; Z79.82 Long term (current) use of aspirin; Z79.899 Other long term (current) drug therapy
CPT/HCPCS: 0240U; 36415; 71275; 80053; 84484; 85025; 93005; 99284; Q9967; 93010

== ENCOUNTER 2022-11-18 19:47 | Emergency (ER) | payer MEDICAID, OTHER ==
[2022-11-18] MEDS ORDERED: Sodium Chloride 0.9% 10 ML Syringe FLUSH PRN (20:30)
[2022-11-18] MEDS ORDERED: Sodium Chloride 0.9% 2.5 ML Syringe FLUSH PRN (20:30)
[2022-11-18 20:58] LABS: CARBON DIOXIDE,CO2 28.9 mmol/L (21.0-32.0); POTASSIUM,K 3.8 mmol/L (3.5-5.1)
[2022-11-18 23:01] VITALS: BP 138/90; PULSE 88
== END 2022-11-18 21:39 | disposition home or self-care (01) ==
LOC: MW.ED 19:47
DX: R07.89 Other chest pain (principal); I25.119 Atherosclerotic heart disease of native coronary artery with unspecified angina pectoris; I10 Essential (primary) hypertension; E11.9 Type 2 diabetes mellitus without complications; E78.5 Hyperlipidemia, unspecified; Z91.048 Other nonmedicinal substance allergy status; Z79.82 Long term (current) use of aspirin; Z79.899 Other long term (current) drug therapy
CPT/HCPCS: 36415; 71045; 71045-26; 80053; 84484; 85025; 93005; 99285

== ENCOUNTER 2023-10-11 17:52 | Emergency (ER) | payer OTHER ==
[2023-10-11 21:28] VITALS: BP 134/68; PULSE 86
== END 2023-10-11 21:28 | disposition home or self-care (01) ==
LOC: MW.ED 17:52
DX: R51.9 Headache, unspecified (principal); I25.119 Atherosclerotic heart disease of native coronary artery with unspecified angina pectoris; I10 Essential (primary) hypertension; E11.9 Type 2 diabetes mellitus without complications; Z95.5 Presence of coronary angioplasty implant and graft; Z86.16 Personal history of COVID-19; Z79.82 Long term (current) use of aspirin; Z79.899 Other long term (current) drug therapy; Z91.048 Other nonmedicinal substance allergy status
CPT/HCPCS: 70450; 70450-26; 99282; 99284

== ENCOUNTER 2024-07-24 18:52 | Emergency (ER) | payer OTHER ==
[2024-07-24] MEDS: Ondansetron 4 MG/2 ML SDV IVPUSH STA (20:14)
[2024-07-24] MEDS: Morphine 4 MG/ML Syringe IVPUSH STA (20:14)
[2024-07-24] MEDS: Lidocaine 1% 10 ML MDV INFILT ONE (20:15)
[2024-07-24 20:18] LABS: BASOPHILS ABSOLUTE AUTO 0.09 K/uL (0.00-0.20); BASOPHILS PERCENT AUTO 0.6 % (0.0-1.0); EOSINOPHILS ABSOLUTE AUTO 0.34 K/uL (0.00-0.45); EOSINOPHILS PERCENT AUTO 2.3 % (0.0-6.0); HEMOGLOBIN 13.3 g/dL (12.0-16.0); IMMATURE GRAN ABSOLUTE AUTO 0.05 K/uL (0.00-0.05); IMMATURE GRAN PERCENT AUTO 0.3 % (0.0-0.4); LYMPHOCYTES PERCENT AUTO 18.2 % (24.0-44.0); MEAN CORPUSCULAR HEMOGLOBIN 30.2 pg (28.0-32.0); MEAN CORPUSCULAR HGB CONC 34.1 g/dL (32.0-36.0); MEAN CORPUSCULAR VOLUME 88.4 fL (83.0-99.0); MEAN PLATELET VOLUME 11.1 fL (9.4-12.3); MONOCYTES ABSOLUTE AUTO 1.12 K/uL (0.00-0.80); MONOCYTES PERCENT AUTO 7.6 % (0.0-8.0); NEUTROPHILS ABSOLUTE AUTO 10.52 K/uL (1.80-7.70); PLATELET COUNT,PLT 309 K/uL (150-400); RED BLOOD CELL COUNT 4.41 M/uL (4.10-5.30); WHITE BLOOD CELL COUNT,WBC 14.82 K/uL (3.9-11.3)
[2024-07-24 20:54] LABS: A/G RATIO 0.8 (0.9-1.6); ALBUMIN 3.3 g/dL (3.4-5.0); BILIRUBIN TOTAL 0.4 mg/dL (0.2-1.0); CALCIUM 9.5 mg/dL (8.5-10.1); CREATININE 1.3 mg/dL (0.6-1.0); EST CRCL DRUG DOSING (CG) 37.12 mL/min; POTASSIUM,K 3.4 mmol/L (3.5-5.1); PROTEIN TOTAL,TP 7.7 g/dL (6.4-8.2)
[2024-07-24] MEDS ORDERED: 50% Dextrose in Water 50 ML Syringe IVPUSH PRN (21:22)
[2024-07-24] MEDS ORDERED: Glucagon,Human Recombinant 1 MG Vial IM PRN (21:22)
[2024-07-24 21:39] LABS: HEMOGLOBIN A1C 8.1 %
[2024-07-24] MEDS: Morphine 4 MG/ML Syringe IVPUSH ONE (22:01)
[2024-07-24 22:22] LABS: BODY FLUID TYPE SYN
[2024-07-24] MEDS: Sodium Chloride 0.9% 1,000 ML IV ONE (22:40)
[2024-07-24 22:47] LABS: APPEARANCE,BODY FLUID CLOUDY; COLOR,BODY FLUID PINK
[2024-07-24] MEDS: Insulin Regular, Human 100 Units/ML 10 ML Vial IVPUSH ONE (22:47)
[2024-07-24] MEDS: Ketorolac 30 MG/ML SDV IVPUSH ONE (22:48)
[2024-07-24] MEDS: Acetaminophen 500 MG Tab PO ONE (22:49)
[2024-07-24 22:54] LABS: WBC BODY FLUID 22180 /uL
[2024-07-24 22:57] LABS: MONONUCLEAR, BODY FLUID 6.7 %; POLYMORPHONUCLEAR, BODY FLUID 93.3 %; RBC,BODY FLUID 17000 /uL
[2024-07-24] MEDS ORDERED: cefTRIAXone 2 GM in Sodium Chloride 0.9% 50 ML IV ONE (23:05)
[2024-07-24] MEDS ORDERED: Doxycycline 100 MG in Sodium Chloride 0.9% 100 ML IV ONE (23:05)
[2024-07-24] MEDS: Dexamethasone 4 MG/ML SDV IVPUSH ONE (23:19)
[2024-07-24 23:31] LABS: GLUCOSE,BODY FLUID 311 mg/dL
[2024-07-24 23:59] VITALS: BP 151/84; PULSE 110
== END 2024-07-24 23:57 | disposition home or self-care (01) ==
LOC: MW.ED 18:52
DX: M25.462 Effusion, left knee (principal); E11.65 Type 2 diabetes mellitus with hyperglycemia; D72.829 Elevated white blood cell count, unspecified; M17.12 Unilateral primary osteoarthritis, left knee; M25.562 Pain in left knee; R79.82 Elevated C-reactive protein (CRP); R70.0 Elevated erythrocyte sedimentation rate; I25.10 Atherosclerotic heart disease of native coronary artery without angina pectoris; I10 Essential (primary) hypertension; E11.9 Type 2 diabetes mellitus without complications; Z79.82 Long term (current) use of aspirin; Z79.899 Other long term (current) drug therapy; Z91.048 Other nonmedicinal substance allergy status; Z75.8 Other problems related to medical facilities and other health care
CPT/HCPCS: 20610; 36415; 73562; 80053; 82945; 83036; 83605; 85025; 85652; 86140; 87070; 87075; 87205; 89050; 89060; 93005; 96361; 96374; 96375; 96376; 99284; A9270; J1100; J1815; J1885; J2270; J2405; J7030; 93010; 99283; J3490

== ENCOUNTER 2024-11-17 23:21 | Emergency (ER) | payer OTHER ==
[2024-11-18] MEDS: Ciprofloxacin 500 MG Tab PO ONE (03:06)
[2024-11-18] MEDS: Doxycycline 100 MG Cap PO ONE (03:06)
[2024-11-18 03:08] VITALS: BP 153/77; PULSE 92
== END 2024-11-18 03:25 | disposition home or self-care (01) ==
LOC: MW.ED 23:21
DX: L03.116 Cellulitis of left lower limb (principal); I10 Essential (primary) hypertension; I25.10 Atherosclerotic heart disease of native coronary artery without angina pectoris; E11.9 Type 2 diabetes mellitus without complications; Z91.048 Other nonmedicinal substance allergy status; Z91.09 Other allergy status, other than to drugs and biological substances; Z79.82 Long term (current) use of aspirin; Z79.899 Other long term (current) drug therapy; Z90.49 Acquired absence of other specified parts of digestive tract
CPT/HCPCS: 73630; 99283; A9270

== ENCOUNTER 2025-05-17 17:38 | Emergency (ER) | payer MEDICAID, OTHER ==
[2025-05-17 19:35] VITALS: BP 145/86; PULSE 94
== END 2025-05-17 19:33 | disposition home or self-care (01) ==
LOC: MW.ED 17:38
DX: S96.912A Strain of unspecified muscle and tendon at ankle and foot level, left foot, initial encounter (principal); S19.9XXA Unspecified injury of neck, initial encounter; I10 Essential (primary) hypertension; I25.10 Atherosclerotic heart disease of native coronary artery without angina pectoris; E11.9 Type 2 diabetes mellitus without complications; Z79.899 Other long term (current) drug therapy; Z88.8 Allergy status to other drugs, medicaments and biological substances; Z90.49 Acquired absence of other specified parts of digestive tract; W10.8XXA Fall (on) (from) other stairs and steps, initial encounter
CPT/HCPCS: 72125; 72125-26; 73630-26-LT; 73630-LT; 99283; 99284